=== PATIENT | female | born 1955 | race Caucasian/White ===

== ENCOUNTER 2018-02-21 21:42 | Inpatient (IN) ==
[2018-02-21 23:55] LABS: Baso # (Auto) 0.1 th/mm3 (0.0-0.2); Baso % (Auto) 0.7 % (0.0-2.0); Eos # (Auto) 0.3 th/mm3 (0.0-0.4); Eos % (Auto) 2.7 % (0.0-4.0); Hematocrit 43.1 % (35.0-46.0); Hemoglobin 14.8 gm/dL (11.6-15.3); Lymph # (Auto) 3.5 th/mm3 (1.0-4.8); Lymph % (Auto) 33.1 % (9.0-44.0); Mean Corpuscular HGB Conc 34.4 % (32.0-36.0); Mean Corpuscular Hemoglobin 32.1 pg (27.0-34.0); Mean Corpuscular Volume 93.4 fL (80.0-100.0); Mean Platelet Volume 9.5 fL (7.0-11.0); Mono # (Auto) 0.8 th/mm3 (0.0-0.9); Mono % (Auto) 7.4 % (0.0-8.0); Neut # (Auto) 5.9 th/mm3 (1.8-7.7); Neut % (Auto) 56.1 % (16.0-70.0); Platelet Count 164 th/mm3 (150-450); Red Blood Count 4.62 mil/mm3 (4.00-5.30); White Blood Count 10.4 th/mm3 (4.0-11.0)
[2018-02-22 00:09] LABS: Activated Partial Thrombo Time 30.3 sec (24.3-30.1); Albumin 3.4 g/dL (3.4-5.0); Anion Gap 7 meq/L (5-15); Aspartate Aminotransferase 16 U/L (15-37); Blood Urea Nitrogen 15 mg/dL (7-18); Calcium 9.3 mg/dL (8.5-10.1); Carbon Dioxide 24.1 meq/L (21.0-32.0); Chloride 108 meq/L (98-107); Glomerular Filtration Rate 65 mL/min (>89); Glucose,Random 121 mg/dL (74-106); Potassium 3.3 meq/L (3.5-5.1); Prothrombin Time 10.4 sec (9.8-11.6); Sodium 139 meq/L (136-145)
[2018-02-22 00:10] LABS: Alanine Aminotransferase 19 U/L (10-53)
[2018-02-22 00:13] LABS: Alkaline Phosphatase 86 U/L (45-117); Total Protein 7.4 g/dL (6.4-8.2)
[2018-02-22 00:21] LABS: Creatine Kinase 39 U/L (26-192)
--- NOTE | 2018-02-22 00:54 | CT ---
EXAM DATE: 02/22/2018 12:42 AM EDT AGE/SEX: 62 years / Female INDICATIONS: Evaluate for brain lesion. Abnormal scan done at [facility]. CLINICAL DATA: This is the patient's initial encounter. Patient reports that signs and symptoms have been present for 1 day and indicates a pain score of 0/10. MEDICAL/SURGICAL HISTORY: Hypertension. Hypercholesterolemia. None. RADIATION DOSE: 56.35 CTDI (mGy) COMPARISON: No prior exams available for comparison. [facility] 2018-02-21 TECHNIQUE: Axial images of the head were acquired without contrast and after intravenous administrat ion of 100 ml Omnipaque 350 (iohexol) nonionic water-soluble contrast as a single exam dose. Using automated exposure control and adjustment of the mA and/or kV according to patient size, radiation d ose was kept as low as reasonably achievable to obtain optimal diagnostic quality images. DICOM form at image data is available electronically for review and comparison. FINDINGS: Cerebrum: There is mild generalized atrophy and ventricles are normal given the degree of atrophy. M ild periventricular white matter change is present. There is a hyperdense round lesion in the periphe ral right frontal lobe in the mid convexity measuring 1.8 x 1.6 cm. Given the location it could be ei ther intra-axial or extra-axial blood intra-axial is favored. Following contrast administration there is possible enhancement. No other lesion is identified. There is no associated edema within the arabella cent right frontal lobe and no significant mass effect is present. No midline shift, or acute infarc tion. No extraaxial fluid collections are seen. Posterior Fossa: The cerebellum and brainstem demonstrate no acute abnormality. The 4th ventricle is midline. The cerebellopontine angle is within normal limits. Extracranial: The visualized sinuses are clear. Skull: The calvaria is intact. No skull fracture. CONCLUSION: 1. There is a 1.8 cm hyperdense abnormality in the right frontal lobe. Following contrast administra tion there is the suggestion of enhancement suggesting that it represents a solid mass and not hemorr verna. Based on the location this could be intra-axial or extra-axial but the appearance favors an int ra-axial lesion. Therefore, meningioma is unlikely. It is not causing any significant local mass effe ct or edema in the adjacent brain. This should undergo further characterization with brain MRI with a nd without intravenous contrast for additional characterization. This could be performed tomorrow [facility] [place] since it is not causing any mass effect or edema. 2. No other abnormality is identified. Electronically signed by: Mika Dey MD 02/22/2018 12:53 AM EDT
--- NOTE | 2018-02-22 02:20 | ED ---
HPI General Chief Complaint: Neuro Symptoms/Deficit Stated Complaint: transfer inn/medical Time Seen by Provider: 02/21/18 22:35 History of Present Illness HPI Narrative: Patient is a 62-year-old female presents the emergency department from an outside with a newly diagnosed brain mass. Patient reports that over the last few weeks she has had symptoms such as torticollis. Ptosis. And facial droop. Patient is asymptomatic at this time and does state that her symptoms come and go. She went to the other facility because she had facial droop this evening. They subsequently found a mass on CAT scan and transferred the patient here for neurosurgical evaluation. Dr. Li accepted the patient in transfer. Related Data Home Medications Medication Instructions Recorded Confirmed No Known Home Medications 02/21/18 02/21/18 Allergies Allergy/AdvReac Type Severity Reaction Status Date / Time No Known Allergies Allergy Unverified 02/21/18 22:13 Review of Systems ROS: all other systems reviewed are negative Constitutional Denies fever(s) Eyes Denies blurry vision Comments: ptosis left eye ENT Denies nose pain, Denies tinnitus and Denies sinus pressure [facility] Medical History Medical History Hyperlipidemia (Acute) Hypertension (Acute) Family History Family History Other Family history normal Social History Social History Substance History: No History of Abuse Smoking Status: Unknown if ever smoked How Often Do You Have a Drink Containing Alcohol: Never Recent Travel in [facility] within the Last 8 Weeks: No Recent Out of Country Travel within the Last 8 Weeks: No Immunization History Tetanus Immunization: Unsure Exam Narrative Exam Narrative: GENERAL: 62-year-old female in no distress SKIN: Focused skin assessment warm/dry. HEAD: Atraumatic. Normocephalic. EYES: Pupils equal and round. No scleral icterus. No injection or drainage. ENT: No nasal bleeding or discharge. Mucous membranes pink and moist. NECK: Trachea midline. Normal range of motion. No torticollis noted CARDIOVASCULAR: Regular rate and rhythm. No murmur appreciated. RESPIRATORY: No accessory muscle use. Clear to auscultation. Breath sounds equal bilaterally. GASTROINTESTINAL: Abdomen soft, non-tender, nondistended. Hepatic and splenic margins not palpable. MUSCULOSKELETAL: No obvious deformities. No clubbing. No cyanosis. No edema. NEUROLOGICAL: Awake and alert. No obvious cranial nerve deficits. There is no facial asymmetry. There are no cerebellar findings at this time. There are no motor or sensory deficits. Normal speech. PSYCHIATRIC: Appropriate mood and affect; insight and judgment normal. Course Initial Documented Vital Signs Temperature 98.0 F 02/21/18 22:05 Pulse Rate 65 02/21/18 22:05 Respiratory Rate 16 02/21/18 22:05 Blood Pressure 173/85 H 02/21/18 22:05 Pulse Oximetry 98 02/21/18 22:05 Last Documented Vital Signs Temperature 98.0 F 02/21/18 22:05 Pulse Rate 65 02/21/18 22:13 Respiratory Rate 16 02/21/18 22:13 Blood Pressure 173/85 H 02/21/18 22:13 Pulse Oximetry 98 02/21/18 22:13 Medical Decision Making MDM Narrative Medical decision making narrative: Patient was seen and evaluated in the emergency department. A repeat of her laboratory studies and radiographic studies were performed. CT demonstrates frontal lobe mass consistent with meningioma. Patient was subsequently admitted to [facility] at the request of Dr. Li. Dr. Isaacs was present in the ER and evaluated the patient prior to admission. Lab Data Result diagrams: 02/21/18 23:40 02/21/18 23:40 Lab Results 02/21/18 02/21/18 02/21/18 Range/Units 23:40 23:40 23:40 WBC 10.4 (4.0-11.0) th/mm3 RBC 4.62 (4.00-5.30) mil/mm3 Hgb 14.8 (11.6-15.3) gm/dL Hct 43.1 (35.0-46.0) % MCV 93.4 (80.0-100.0) fL MCH 32.1 (27.0-34.0) pg MCHC 34.4 (32.0-36.0) % RDW 14.0 (11.6-17.2) % Plt Count 164 (150-450) th/mm3 MPV 9.5 (7.0-11.0) fL Neut % (Auto) 56.1 (16.0-70.0) % Lymph % (Auto) 33.1 (9.0-44.0) % Mineral % (Auto) 7.4 (0.0-8.0) % Eos % (Auto) 2.7 (0.0-4.0) % Baso % (Auto) 0.7 (0.0-2.0) % Neut # (Auto) 5.9 (1.8-7.7) th/mm3 Lymph # (Auto) 3.5 (1.0-4.8) th/mm3 Mineral # (Auto) 0.8 (0.0-0.9) th/mm3 Eos # (Auto) 0.3 (0.0-0.4) th/mm3 Baso # (Auto) 0.1 (0.0-0.2) th/mm3 WBC Differential . Differential Comment Auto diff final PT 10.4 (9.8-11.6) sec INR 1.0 Ratio APTT 30.3 H (24.3-30.1) sec Sodium 139 (136-145) meq/L Potassium 3.3 L (3.5-5.1) meq/L Chloride 108 H (98-107) meq/L Carbon Dioxide 24.1 (21.0-32.0) meq/L Anion Gap 7 (5-15) meq/L BUN 15 (7-18) mg/dL Creatinine 0.88 (0.50-1.00) mg/dL Estimated GFR 65 L (>89) mL/min Random Glucose 121 H (74-106) mg/dL Calcium 9.3 (8.5-10.1) mg/dL Total Bilirubin 0.4 (0.2-1.0) mg/dL AST 16 (15-37) U/L ALT 19 (10-53) U/L Alkaline Phosphatase 86 (45-117) U/L Total Creatine Kinase 39 (26-192) U/L Total Protein 7.4 (6.4-8.2) g/dL Albumin 3.4 (3.4-5.0) g/dL Blood Type Blood Type Recheck Antibody Screen 02/21/18 Range/Units 23:40 WBC (4.0-11.0) th/mm3 RBC (4.00-5.30) mil/mm3 Hgb (11.6-15.3) gm/dL Hct (35.0-46.0) % MCV (80.0-100.0) fL MCH (27.0-34.0) pg MCHC (32.0-36.0) % RDW (11.6-17.2) % Plt Count (150-450) th/mm3 MPV (7.0-11.0) fL Neut % (Auto) (16.0-70.0) % Lymph % (Auto) (9.0-44.0) % Mineral % (Auto) (0.0-8.0) % Eos % (Auto) (0.0-4.0) % Baso % (Auto) (0.0-2.0) % Neut # (Auto) (1.8-7.7) th/mm3 Lymph # (Auto) (1.0-4.8) th/mm3 Mineral # (Auto) (0.0-0.9) th/mm3 Eos # (Auto) (0.0-0.4) th/mm3 Baso # (Auto) (0.0-0.2) th/mm3 WBC Differential Differential Comment PT (9.8-11.6) sec INR Ratio APTT (24.3-30.1) sec Sodium (136-145) meq/L Potassium (3.5-5.1) meq/L Chloride (98-107) meq/L Carbon Dioxide (21.0-32.0) meq/L Anion Gap (5-15) meq/L BUN (7-18) mg/dL Creatinine (0.50-1.00) mg/dL Estimated GFR (>89) mL/min Random Glucose (74-106) mg/dL Calcium (8.5-10.1) mg/dL Total Bilirubin (0.2-1.0) mg/dL AST (15-37) U/L ALT (10-53) U/L Alkaline Phosphatase (45-117) U/L Total Creatine Kinase (26-192) U/L Total Protein (6.4-8.2) g/dL Albumin (3.4-5.0) g/dL Blood Type A Positive Blood Type Recheck Required Antibody Screen Negative Imaging Data Radiologist's impression: Head CT 02/22/18 00:01 CONCLUSION: 1. There is a 1.8 cm hyperdense abnormality in the right frontal lobe. Following contrast administration there is the suggestion of enhancement suggesting that it represents a solid mass and not hemorrhage. Based on the location this could be intra-axial or extra-axial but the appearance favors an intra-axial lesion. Therefore, meningioma is unlikely. It is not causing any significant local mass effect or edema in the adjacent brain. This should undergo further characterization with brain MRI with and without intravenous contrast for additional characterization. This could be performed tomorrow morning since it is not causing any mass effect or edema. 2. No other abnormality is identified. Discharge Plan Discharge Disposition Patient Disposition: 30 Still Patient Discharge Condition Condition: Stable Physicians Team ED Provider: Shania Ravi Primary Care Provider: UNKNOWN, Attending Provider: Makenzie Isaacs Other Providers: Abad Li Status ED Status: Admitted Patient
[2018-02-22] MEDS ORDERED: Acetaminophen 325 MG Tablet PO PRN (03:10)
[2018-02-22] MEDS ORDERED: Bisacodyl 10 MG Supp RECTAL PRN (03:10)
[2018-02-22] MEDS ORDERED: Temazepam 15 MG Capsule PO PRN (03:10)
--- NOTE | 2018-02-22 03:20 | P.HP ---
History of Present Illness Service: [facility] Primary Care Physician: UNKNOWN History of Present Illness: 62-year-old female is a transfer from [facility] for an evaluation of a brain mass. The patient reports that approximately 2 weeks ago she complained of numbness. She also states that she has had 3 episodes of left-sided tongue and facial numbness with slurred speech. She was concerned that she had a stroke. She went to [facility] for further evaluation where a CT of the head showed a frontal lobe mass. [place] [facility] [place] there was no neurology/neurosurgery on-call at [place]. The patient states that she feels fine. Denies any headaches or blurry vision. No pain. Inpatient Certification: I certify that the inpatient services were ordered in accordance with Medicare regulations governing the order. This includes certification that hospital inpatient services are reasonable and necessary and in the case of services not specified as inpatient-only under 42 CFR 419.22(n), that they are appropriately provided as inpatient services in accordance to with the 2-midnight benchmark under 43 CFR 412.3(e) Estimated Total Length of Stay (Days): 3 Plans for Post Hospital Care: Not yet determined Review of Systems All other systems reviewed negative except as stated in HPI PMFSH - History History Provided By: Advertising Designer / EMT - Medical / Surgical Hx Neg / Unobtainable Surgical History: No Previous Surgery - Medical History Medical History: Medical History (Last Updated 02/21/18 @ 22:12 by Yanira Cao) Hyperlipidemia Hypertension - Family History Family History: Family History (Last Updated 02/22/18 @ 03:16 by Makenzie Isaacs MD) Other Family history normal - Tobacco History Smoking Status: Unknown if ever smoked - Alcohol History How Often Do You Have a Drink Containing Alcohol: Never - Substance Use History Substance History: No History of Abuse - Travel History Recent Travel in the [place] Within the Last 8 Weeks: No Recent Travel Out of the Country Within the Last 8 Weeks: No - Immunization History Tetanus Immunization: Unsure Medications and Allergies Allergies Allergy/AdvReac Type Severity Reaction Status Date / Time No Known Allergies Allergy Unverified 02/21/18 22:13 Home Medications Medication Instructions Recorded Confirmed Type No Known Home Medications 02/21/18 02/21/18 History Exam Vital signs: Vital Signs 02/21/18 22:05 02/21/18 22:13 Temperature 98.0 F Pulse Rate 65 65 Respiratory Rate 16 16 Blood Pressure 173/85 H 173/85 H Pulse Oximetry 98 98 Intake & Output 02/21/18 02/21/18 02/22/18 06:59 18:59 06:59 Weight 63.503 kg Narrative: Gen.: No acute distress Head: Normocephalic. Atraumatic. EENT: Pupils equal round and reactive to light. Nose without drainage. Airway intact. Throat without injection. Cardiovascular: Regular rate and rhythm. No murmurs, rubs or gallops. Respiratory: Lungs clear to auscultation bilaterally. No wheezes or rhonchi. Abdomen: Soft, nontender, nondistended. No peritoneal signs. Musculoskeletal: No gross deformities. No edema. Skin: No obvious rashes or erythema. Neuro: Sensory and motor intact. Cranial nerves II through XII intact. 5/5 strength throughout. No slurred speech. Psych: Appropriate mood and affect Results - Labs CBC & Chem 7: 02/21/18 23:40 02/21/18 23:40 Labs: Laboratory Results - last 24 hr 02/21/18 02/21/18 02/21/18 23:40 23:40 23:40 WBC 10.4 RBC 4.62 Hgb 14.8 Hct 43.1 MCV 93.4 MCH 32.1 MCHC 34.4 RDW 14.0 Plt Count 164 MPV 9.5 Neut % (Auto) 56.1 Lymph % (Auto) 33.1 [place] % (Auto) 7.4 Eos % (Auto) 2.7 Baso % (Auto) 0.7 Neut # (Auto) 5.9 Lymph # (Auto) 3.5 [place] # (Auto) 0.8 Eos # (Auto) 0.3 Baso # (Auto) 0.1 WBC Differential . Differential Comment Auto diff final PT 10.4 INR 1.0 APTT 30.3 H Sodium 139 Potassium 3.3 L Chloride 108 H Carbon Dioxide 24.1 Anion Gap 7 BUN 15 Creatinine 0.88 Estimated GFR 65 L Random Glucose 121 H Calcium 9.3 Total Bilirubin 0.4 AST 16 ALT 19 Alkaline Phosphatase 86 Total Creatine Kinase 39 Total Protein 7.4 Albumin 3.4 Blood Type Blood Type Recheck Antibody Screen 02/21/18 23:40 WBC RBC Hgb Hct MCV MCH MCHC RDW Plt Count MPV Neut % (Auto) Lymph % (Auto) [place] % (Auto) Eos % (Auto) Baso % (Auto) Neut # (Auto) Lymph # (Auto) [place] # (Auto) Eos # (Auto) Baso # (Auto) WBC Differential Differential Comment PT INR APTT Sodium Potassium Chloride Carbon Dioxide Anion Gap BUN Creatinine Estimated GFR Random Glucose Calcium Total Bilirubin AST ALT Alkaline Phosphatase Total Creatine Kinase Total Protein Albumin Blood Type A Positive Blood Type Recheck Required Antibody Screen Negative - Imaging Impressions Head CT 02/22/18 00:01 CONCLUSION: 1. There is a 1.8 cm hyperdense abnormality in the right frontal lobe. Following contrast administration there is the suggestion of enhancement suggesting that it represents a solid mass and not hemorrhage. Based on the location this could be intra-axial or extra-axial but the appearance favors an intra-axial lesion. Therefore, meningioma is unlikely. It is not causing any significant local mass effect or edema in the adjacent brain. This should undergo further characterization with brain MRI with and without intravenous contrast for additional characterization. This could be performed tomorrow morning since it is not causing any mass effect or edema. 2. No other abnormality is identified. Caprini VTE Risk Assessment Caprini VTE Risk Assessment: Moderate/High Risk (score >= 2) Caprini Risk Assessment Model: Point Value = 1 Point Value = 2 Point Value = 3 Point Value = 5 Age 41-60 Minor surgery BMI > 25 kg/m2 Swollen legs Varicose veins or History of unexplained or recurrent spontaneous Oral contraceptives or hormone replacement Sepsis (< 1 month) Serious lung disease, including pneumonia (< 1 month) Abnormal pulmonary function Acute myocardial infarction Congestive heart failure (< 1 month) History of inflammatory bowel disease Medical patient at bed rest Age 61-74 Arthroscopic surgery Major open surgery (> 45 min) Laparoscopic surgery (> 45 min) Malignancy Confined to bed (> 72 hours) Immobilizing plaster cast Central venous access Age >= 75 History of VTE Family history of VTE Factor V Leiden Prothrombin [id number] Lupus anticoagulant Anticardiolipin antibodies Elevated serum homocysteine Heparin-induced thrombocytopenia Other congenital or acquired thrombophilia Stroke (< 1 month) Elective arthroplasty Hip, pelvis, or leg fracture Acute spinal cord injury (< 1 month) Prophylaxis Regimen: Total Risk Factor Score Risk Level Prophylaxis Regimen 0-1 Low Early ambulation 2 Moderate Order ONE of the following: *Sequential Compression Device (SCD) *Heparin 5000 units SQ BID 3-4 Higher Order ONE of the following medications: *Heparin 5000 units SQ TID *Enoxaparin/Lovenox 40 mg SQ daily (WT < 150 kg, CrCl > 30 mL/min) *Enoxaparin/Lovenox 30 mg SQ daily (WT < 150 kg, CrCl > 10-29 mL/min) *Enoxaparin/Lovenox 30 mg SQ BID (WT < 150 kg, CrCl > 30 mL/min) AND/OR *Sequential Compression Device (SCD) 5 or more Highest Order ONE of the following medications: *Heparin 5000 units SQ TID (Preferred with Epidurals) *Enoxaparin/Lovenox 40 mg SQ daily (WT < 150 kg, CrCl > 30 mL/min) *Enoxaparin/Lovenox 30 mg SQ daily (WT < 150 kg, CrCl > 10-29 mL/min) *Enoxaparin/Lovenox 30 mg SQ BID (WT < 150 kg, CrCl > 30 mL/min) AND *Sequential Compression Device (SCD) Assessment and Plan - Plan Assessment/plan: 1. Numbness/frontal lobe mass Head CT significant for 1.8 cm hyperdense abnormality in the right frontal lobe MRI pending Decadron Neurosurgery consulted, appreciate recommendations 2. Hypertension/hyperlipidemia Continue home medications once medications reconciled 3. Hypokalemia Status post p.o. repletion Monitor BMP FEN N.p.o. NS at 75 cc/hour Holding pharmacologic anticoagulation at this time for possible procedure Electrolytes: As above
[2018-02-22] MEDS: Sod Chloride 0.9% Inj 1,000 ML IV.CONT SCH ×3 (05:10→16:49)
[2018-02-22] MEDS ORDERED: Gadobutrol PF 7.5 MMOL/7.5 ML Vial (for RAD) IV.SIG ONE (09:24)
--- NOTE | 2018-02-22 09:50 | MR ---
EXAM DATE: 02/22/2018 9:33 AM EDT AGE/SEX: 62 years / Female INDICATIONS: Mass. CLINICAL DATA: This is the patient's initial encounter. Patient reports that signs and symptoms have been present for 1 day and indicates a pain score of 0/10. MEDICAL/SURGICAL HISTORY: Hypertension. Tubal ligation. COMPARISON: [facility] [place], [place] HEAD W & W/O CONTRAST, 02/22/2018. . TECHNIQUE: Multiplanar, multisequence examination of the brain was performed without and with 6 ml Ga davist (gadobutrol) contrast as a single exam dose. FINDINGS: Cerebrum: A peripherally enhancing mass is seen within the right parietal lobe at the haines-white ozzy er junction measuring 1.8 x 1.6 x 1.7 cm. Vasogenic edema is not appreciated. No other masses are see n. The ventricles are normal for age. No evidence of midline shift, hemorrhage or acute infarction. No extraaxial fluid collections are seen. The pituitary gland and suprasellar cistern are normal in configuration. White Matter: No significant signal abnormalities are seen in the white matter. Posterior Fossa: The cerebellum and brainstem are intact. The 4th ventricle is midline. The cerebel lopontine angle is unremarkable. The cerebellar tonsils are normal in position. Diffusion Imaging: No focal areas of restricted diffusion are seen. No evidence of acute infarction . Extracranial: The visualized portions of the orbits and paranasal sinuses are unremarkable. Post Contrast: Enhancing mass right parietal lobe as described above. CONCLUSION: 1. Enhancing mass right parietal lobe concerning for neoplasm and possible metastatic disease. 2. The remainder of the brain is otherwise unremarkable. Electronically signed by: Julio Serrato MD 02/22/2018 9:49 AM EDT
[2018-02-22] MEDS: Senna/Docusate Sodium 8.6/50 MG Tablet PO SCH ×2 (10:23→21:16)
--- NOTE | 2018-02-22 17:35 | P.CONNS ---
History of Present Illness Primary Care Provider: UNKNOWN Chief Complaint: Transient left facial numbness/weakness History of Present Illness: Ms. Keller is a 65 y/o female who has had several instances of transient left facial weakness and numbness over the past several weeks. She had previously sought medical attention and been told that the neurologic phenomena likely represented a TIA. She again had another episode and presented to the ED where CT head demonstrated cerebral edema in the right frontal lobe with imaging characteristics concerning for a mass lesion. She was transferred to [place] where she underwent a MRI of the brain that demonstrated a 1.8 x 1.6 cm heterogenously enhancing lesion most consistent with a solitary brain metastasis. She has a 40 year smoking history, denies history of cancer otherwise. Review of Systems All other systems reviewed negative except as stated in HPI [facility] - History History Provided By: Patient - Medical History Medical History: Medical History (Last Updated 02/21/18 @ 22:12 by Yanira Cao) Hyperlipidemia Hypertension - Family History Family History: Family History (Last Updated 02/22/18 @ 03:16 by Makenzie Isaacs MD) Other Family history normal - Tobacco History Second Hand Smoke Exposure: Yes Tobacco Use In Past 30 Days: Yes Smoking Status: Heavy tobacco smoker Tobacco Type: Cigarettes - Alcohol History How Often Do You Have a Drink Containing Alcohol: 2 to 3 times a week - Substance Use History Substance History: No History of Abuse - Travel History Recent Travel in the [place] Within the Last 8 Weeks: No Recent Travel Out of the Country Within the Last 8 Weeks: No - Immunization History Tetanus Immunization: Unsure Medications and Allergies Active Medications: Active Medications Acetaminophen (Tylenol) 650 mg PO Q4H PRN PRN Reason: Temp > 100.4 Al Hydroxide/Mg Hydroxide (Milk Of Magnesia Liq) 30 ml PO Q12H PRN PRN Reason: Mild Constipation Bisacodyl (Dulcolax Supp) 10 mg RECTAL DAILY PRN PRN Reason: SEVERE CONSITIPATION Dexamethasone Sodium Phosphate (Decadron Inj) 4 mg IV.PUSH Q8HR [facility] Last Admin: 02/22/18 13:30 Dose: 4 mg Sodium Chloride (Ns Inj) 1,000 mls @ 75 mls/hr IV.CONT .[id number] [facility] Last Admin: 02/22/18 16:49 Dose: 75 mls/hr Lactulose (Lactulose Liq) 30 ml PO DAILY PRN PRN Reason: SEVERE CONSITIPATION Ondansetron HCl (Zofran Inj) 4 mg IV.PUSH Q6H PRN PRN Reason: NAUSEA OR VOMITING Senna/Docusate Sodium (Mallory-Colace) 1 tab PO BID [facility] Last Admin: 02/22/18 10:23 Dose: 1 tab Sennosides (Senokot) 17.2 mg PO Q12H PRN PRN Reason: Moderate Constipation Sodium Chloride (Ns Flush) 2 ml IV.FLUSH BID [facility] Last Admin: 02/22/18 10:23 Dose: 2 ml Sodium Chloride (Ns Flush) 2 ml IV.FLUSH PRN PRN PRN Reason: FLUSH AFTER USING IV ACCESS Temazepam (Restoril) 15 mg PO HS PRN PRN Reason: INSOMNIA Allergies Allergy/AdvReac Type Severity Reaction Status Date / Time No Known Allergies Allergy Unverified 02/21/18 22:13 Home Medications Medication Instructions Recorded Confirmed Type No Known Home Medications 02/21/18 02/21/18 History Exam Vital signs: Vital Signs 02/21/18 22:05 02/21/18 22:13 02/22/18 04:49 Temperature 98.0 F Pulse Rate 65 65 89 Respiratory Rate 16 16 16 Blood Pressure 173/85 H 173/85 H 122/77 Pulse Oximetry 98 98 98 02/22/18 05:22 02/22/18 08:00 02/22/18 12:00 Temperature 98.2 F 98.6 F 98.2 F Pulse Rate 73 73 98 H Respiratory Rate 16 16 16 Blood Pressure 154/72 H 147/71 H 174/99 H Pulse Oximetry 96 99 95 02/22/18 13:01 02/22/18 16:00 Temperature 98.0 F Pulse Rate 106 H Respiratory Rate 14 Blood Pressure 142/80 H 138/81 Pulse Oximetry 96 Intake & Output 02/21/18 02/22/18 02/22/18 18:59 06:59 18:59 Intake Total 0 / 0 1000 / 1000 Balance 0 / 0 1000 / 1000 Weight 63.503 kg 55.452 kg Intake: IV 1000 / 1000 NS Inj 1,000 ML @ 75 mls/hr IV. 1000 / 1000 CONT .[id number] [facility] Rx#:[id number] Oral 0 / 0 Other: # Voids 1 Date of Last Bowel Movement 02/22/12 02/21/18 - Constitutional no acute distress - Routine HEENT Exam Head: Present: normocephalic Eye: Present: PERRL ENT: Present: mucous membranes moist - Routine Neck Exam Present: supple - Routine Chest/Breast/Axilla Exam Chest wall: Absent: tenderness - Routine Respiratory Exam Absent: respiratory distress - Routine Cardiovascular Exam Present: RRR - Routine Abdominal Exam Present: soft - Routine Extremities Exam Absent: cyanosis - Routine Skin Exam Present: intact - Routine Neurological Exam Present: alert, oriented X3, CN II-XII intact. Absent: motor deficit, pronator drift Results - Laboratory Findings CBC and BMP: 02/21/18 23:40 02/21/18 23:40 Abnormal lab findings: Abnormal Labs 02/21/18 02/21/18 23:40 23:40 APTT 30.3 H Potassium 3.3 L Chloride 108 H Estimated GFR 65 L Random Glucose 121 H - Diagnostic Findings Additional findings: MRI brain: 1.8 x 1.6 cm heterogenously enhancing lesion most consistent with a solitary brain metastasis. Assessment and Plan - Assessment (1) Brain metastasis Code(s): C79.31 - Secondary malignant neoplasm of brain Status: Acute - Plan Ms. Keller is a 62 y/o female presenting with a solitary brain lesion consistent with metastasis. No known primary as of yet, but she does have a significant smoking history. Plan: She, her and I discussed her treatment options at length. She has two primary options for treatment of the solitary brain lesion: 1. surgical resection and 2. stereotactic radiosurgery. Given the lesion's small size, I would recommend stereotactic radiosurgery should a primary lesion be identified and biopsied. If there is no primary lesion identified, then could consider craniotomy for tumor resection. 1. CT chest/abdomen/pelvis to evaluate for primary lesion and subsequent biopsy. 2. If no lesion evident on CT chest/abdomen/pelvis, would recommend craniotomy for tumor resection on 02/24/18. 3. Keppra 500 mg PO BID, Dexamethasone 4 mg q6h
[2018-02-23 05:43] LABS: Baso % (Auto) 0.1 % (0.0-2.0); Hematocrit 40.9 % (35.0-46.0); Hemoglobin 13.9 gm/dL (11.6-15.3); Lymph # (Auto) 1.4 th/mm3 (1.0-4.8); Lymph % (Auto) 11.5 % (9.0-44.0); Mean Corpuscular Hemoglobin 32.3 pg (27.0-34.0); Mean Corpuscular Volume 95.3 fL (80.0-100.0); Mono # (Auto) 0.3 th/mm3 (0.0-0.9); Mono % (Auto) 2.4 % (0.0-8.0); Neut # (Auto) 10.7 th/mm3 (1.8-7.7); Platelet Count 172 th/mm3 (150-450); Red Blood Count 4.29 mil/mm3 (4.00-5.30); Red Cell Distribution Width 14.1 % (11.6-17.2); White Blood Count 12.5 th/mm3 (4.0-11.0)
[2018-02-23] MEDS: Sod Chloride 0.9% Inj 1,000 ML IV.CONT SCH ×2 (06:14→22:03)
[2018-02-23 06:18] LABS: Calcium 9.2 mg/dL (8.5-10.1); Carbon Dioxide 23.9 meq/L (21.0-32.0)
[2018-02-23] MEDS: Senna/Docusate Sodium 8.6/50 MG Tablet PO SCH ×2 (09:12→22:02)
--- NOTE | 2018-02-23 11:15 | P.PN ---
Subjective Interval history: Follow-up for brain mass. Patient reports feeling well today. She denies any headache, visual changes, unilateral numbness/weakness, chest pain, shortness of breath, or abdominal complaints. Going for CT of chest/abdomen/pelvis this morning. Physical Exam Vital signs: Vital Signs 02/22/18 12:00 02/22/18 13:01 02/22/18 16:00 Temperature 98.2 F 98.0 F Pulse Rate 98 H 106 H Respiratory Rate 16 14 Blood Pressure 174/99 H 142/80 H 138/81 Pulse Oximetry 95 96 02/22/18 20:00 02/23/18 00:00 02/23/18 04:00 Temperature 98.7 F 98.1 F Pulse Rate 97 H 78 62 Respiratory Rate 18 18 16 Blood Pressure 136/74 128/62 132/71 Pulse Oximetry 100 02/23/18 07:33 Temperature 97.7 F Pulse Rate 72 Respiratory Rate 16 Blood Pressure 141/75 H Pulse Oximetry 97 Intake & Output 02/22/18 02/23/18 02/23/18 18:59 06:59 18:59 Intake Total 1400 / 1400 1000 / 1000 Balance 1400 / 1400 1000 / 1000 Weight 55.452 kg Intake: IV 1000 / 1000 1000 / 1000 NS Inj 1,000 ML @ 75 mls/hr IV. 1000 / 1000 1000 / 1000 CONT .[id number] [facility] Rx#:[id number] Oral 400 / 400 Other: Date of Last Bowel Movement 02/21/18 02/21/18 02/22/18 Narrative: GENERAL: Well-nourished, well-developed pleasant middle-age female patient in [facility]. SKIN: Warm and dry. No rash. HEENT: Normocephalic. Atraumatic. Pupils equal and round. Mucous membranes pink and moist. NECK: Supple. Trachea midline. No palpable lymphadenopathy. CARDIOVASCULAR: Regular rate and rhythm. No murmur appreciated. RESPIRATORY: No accessory muscle use. Clear to auscultation. Breath sounds equal bilaterally. GASTROINTESTINAL: Abdomen soft, non-tender, nondistended. Normoactive bowel sounds x4. MUSCULOSKELETAL: No obvious deformities. Extremities without clubbing, cyanosis , or edema. NEUROLOGICAL: Awake and alert. No obvious cranial nerve deficits. Motor grossly within normal limits. Moving all extremities spontaneously. Normal speech. PSYCHIATRIC: Appropriate mood and affect; insight and judgment normal. Results - Labs CBC & Chem 7: 02/23/18 03:30 02/23/18 03:30 Laboratory Results - last 24 hr 02/23/18 02/23/18 03:30 03:30 WBC 12.5 H RBC 4.29 Hgb 13.9 Hct 40.9 MCV 95.3 MCH 32.3 MCHC 34.0 RDW 14.1 Plt Count 172 MPV 10.0 Neut % (Auto) 86.0 H Lymph % (Auto) 11.5 Sierra % (Auto) 2.4 Eos % (Auto) 0.0 Baso % (Auto) 0.1 Neut # (Auto) 10.7 H Lymph # (Auto) 1.4 Sierra # (Auto) 0.3 Eos # (Auto) 0.0 Baso # (Auto) 0.0 WBC Differential . Differential Comment Auto diff final Sodium 141 Potassium 4.0 Chloride 109 H Carbon Dioxide 23.9 Anion Gap 8 BUN 17 Creatinine 0.74 Estimated GFR 80 L Random Glucose 138 H Calcium 9.2 - Imaging Head MRI 02/22/18 00:00 CONCLUSION: 1. Enhancing mass right parietal lobe concerning for neoplasm and possible metastatic disease. 2. The remainder of the brain is otherwise unremarkable. Head CT 02/22/18 00:01 CONCLUSION: 1. There is a 1.8 cm hyperdense abnormality in the right frontal lobe. Following contrast administration there is the suggestion of enhancement suggesting that it represents a solid mass and not hemorrhage. Based on the location this could be intra-axial or extra-axial but the appearance favors an intra-axial lesion. Therefore, meningioma is unlikely. It is not causing any significant local mass effect or edema in the adjacent brain. This should undergo further characterization with brain MRI with and without intravenous contrast for additional characterization. This could be performed tomorrow morning since it is not causing any mass effect or edema. 2. No other abnormality is identified. Abdomen/Pelvis CT 02/23/18 00:00 CONCLUSION: 1. Benign-appearing 8.5 mm cyst in the medial aspect of the right hepatic lobe. 2. Otherwise, no findings of a mass lesion or metastatic disease. 3. 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 Chest CT 02/23/18 00:00 CONCLUSION: 1. Early biapical emphysematous changes. 2. Isolated 2 cm lymph node in the left hilar region. Etiology is uncertain. Outpatient patent PET imaging could be performed to evaluate metabolic activity in this region if clinically warranted. 3. Mild atherosclerotic calcification of the coronary arteries Assessment and Plan - Plan 62-year-old female with history of hypertension, hyperlipidemia, presents from [facility] for evaluation of a brain mass. She presented to [facility] with 3 episodes of left-sided tongue/facial numbness, slurred speech, concerned for having a stroke, found to have a frontal lobe mass on CT, sent to [facility] for neurosurgery evaluation. Brain mass: Acute. + Facial numbness/slurred speech. Symptoms now improved. -Head CT reviewed, shows 1.8 cm hyperdense abnormality in the right frontal lobe -Brain MRI reviewed, shows enhancing mass right parietal lobe concerning for neoplasm and possible metastatic disease -Consulted neurosurgery, appreciate recommendations -Started on Decadron 4mg IV q6h and Keppra 500mg po bid -Checking CT of chest/abdomen/pelvis to look for primary lesion Hypertension/Hyperlipidemia: chronic. BP fairly well-controlled. -restart home meds once med rec is updated DVT prophylaxis: Teds/SCDs; avoid chemical prophylaxis with possible upcoming biopsy/procedure
--- NOTE | 2018-02-23 11:15 | CT ---
EXAM DATE: 02/23/2018 11:04 AM EDT AGE/SEX: 62 years / Female INDICATIONS: Brain tumor, evaluate for metastatic disease. CLINICAL DATA: This is the patient's initial encounter. Patient reports that signs and symptoms have been present for 1 day and indicates a pain score of 0/10. MEDICAL/SURGICAL HISTORY: Hypertension. None. RADIATION DOSE: 5.1 CTDI (mGy) COMPARISON: No prior exams available for comparison. TECHNIQUE: Multiple contiguous axial images were obtained through the chest during bolus infusion of 95 ml Omnipaque 350 (iohexol) nonionic water-soluble contrast as a cumulative dose for multiple exa ms. Images were obtained in suspended respiration using multiple row detector helical technique. U sing automated exposure control and adjustment of the mA and/or kV according to patient size, radiati on dose was kept as low as reasonably achievable to obtain optimal diagnostic quality images. DICOM format image data is available electronically for review and comparison. FINDINGS: Lungs: A few subpleural blebs in the apices are characteristic of mild emphysematous changes. Lungs are otherwise clear. Mediastinum: Mild athetotic calcification of the coronary arteries. There appears to be an isolated, 2 cm left perihilar lymph node. Pleurae: No evidence of focal thickening or pleural effusion. Axillae: Unremarkable. Bony Structures: Unremarkable. Miscellaneous: The examination was extended to include the upper abdomen, and both adrenal glands ar e normal in size and configuration. 8.5 mm benign-appearing cyst in the medial right hepatic lobe Post Contrast: No abnormal areas of enhancement seen. CONCLUSION: 1. Early biapical emphysematous changes. 2. Isolated 2 cm lymph node in the left hilar region. Etiology is uncertain. Outpatient patent PET i maging could be performed to evaluate metabolic activity in this region if clinically warranted. 3. Mild atherosclerotic calcification of the coronary arteries Electronically signed by: Sajan Cr MD 02/23/2018 11:14 AM EDT
--- NOTE | 2018-02-23 11:20 | CT ---
EXAM DATE: 02/23/2018 11:04 AM EDT AGE/SEX: 62 years / Female INDICATIONS: Brain tumor, evaluate for metastatic disease. CLINICAL DATA: This is the patient's initial encounter. Patient reports that signs and symptoms have been present for 1 day and indicates a pain score of 0/10. MEDICAL/SURGICAL HISTORY: Hypertension. None. ORAL CONTRAST: No oral contrast ingested. RADIATION DOSE: 5.1 CTDI (mGy) COMPARISON: No prior exams available for comparison. TECHNIQUE: Multiple contiguous axial images were obtained through the abdomen and pelvis following b olus infusion of 95 ml Omnipaque 350 (iohexol) nonionic water-soluble contrast as a cumulative dose for multiple exams. No oral contrast ingested. Using automated exposure control and adjustment of t he mA and/or kV according to patient size, radiation dose was kept as low as reasonably achievable to obtain optimal diagnostic quality images. DICOM format image data is available electronically for r eview and comparison. FINDINGS: Lower Lungs: The visualized lower lungs are clear. Liver: Isolated, 8.5 mm cyst medially in the right hepatic lobe. Otherwise, homogeneous density. Spleen: Homogeneous density without enlargement. Pancreas: Unremarkable without mass or calcification. Kidneys: Normal in size and shape. No evidence of mass or hydronephrosis. Adrenal Glands: Unremarkable. Aorta: Dense athetotic plaquing of the abdominal aorta but the vessel is normal in caliber througho ut its length. The left common iliac occludes at its origin with a 50% stenosis in the ostium of the right common iliac artery. Calcification of the right iliac system but the vessel is otherwise patent . Collateral reconstitution of the left external iliac in the region of the hypogastric. Bowel/Mesentery: The bowel loops are grossly unremarkable. The cecum and sigmoid colon have a normal configuration. Abdominal Wall: Intact. Retroperitoneum: No evidence of adenopathy in the retrocrural, para-aortic, or deep pelvic regions. Bladder: Contours are smooth. Reproductive Organs: No abnormal masses or calcifications seen. Inguinal: The inguinal region is unremarkable without evidence of adenopathy. Bony Structures: Unremarkable. Post Contrast: No abnormal areas of enhancement seen. CONCLUSION: 1. Benign-appearing 8.5 mm cyst in the medial aspect of the right hepatic lobe. 2. Otherwise, no findings of a mass lesion or metastatic disease. 3. 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 Electronically signed by: Sajan Cr MD 02/23/2018 11:19 AM EDT
[2018-02-23] MEDS ORDERED: Chlorhexidine Gluconate 2% 1 Pack (2 Cloths) TOPICAL SCH (17:45)
[2018-02-23] MEDS ORDERED: Metoprolol Tartrate 25 MG Tablet PO SCH (17:45)
--- NOTE | 2018-02-23 17:46 | P.PNNS ---
Subjective Interval history: No events CT Chest/Abd/Pelvis negative except for small hilar nodule planned for 3 month f /u PET per Onc-- they agree w/ brain tissue diagnosis tmrw Physical Exam Vital signs: Vital Signs 02/22/18 20:00 02/23/18 00:00 02/23/18 04:00 Temperature 98.7 F 98.1 F Pulse Rate 97 H 78 62 Respiratory Rate 18 18 16 Blood Pressure 136/74 128/62 132/71 Pulse Oximetry 100 02/23/18 07:33 02/23/18 15:28 Temperature 97.7 F 97.7 F Pulse Rate 72 75 Respiratory Rate 16 16 Blood Pressure 141/75 H 147/70 H Pulse Oximetry 97 96 Intake & Output 02/22/18 02/23/18 02/23/18 18:59 06:59 18:59 Intake Total 1400 / 1400 1000 / 1000 Balance 1400 / 1400 1000 / 1000 Weight 55.452 kg Intake: IV 1000 / 1000 1000 / 1000 NS Inj 1,000 ML @ 75 mls/hr IV. 1000 / 1000 1000 / 1000 CONT .[id number] [facility] Rx#:[id number] Oral 400 / 400 Other: Date of Last Bowel Movement 02/21/18 02/21/18 02/22/18 Narrative: A&O x 3 CN II-XII intact Motor 5/5 UE/ LE Reflexes symmetric physiologic Gait wnl Assessment and Plan - Assessment (1) Brain metastasis Code(s): C79.31 - Secondary malignant neoplasm of brain Status: Acute - Plan Ms. Keller is a 62 y/o female presenting with a solitary brain lesion consistent with metastasis. No known primary as of yet, but she does have a significant smoking history. Plan: She, her and I discussed her treatment options at length. She has two primary options for treatment of the solitary brain lesion: 1. surgical resection and 2. stereotactic radiosurgery. Given the lesion's small size, I would recommend stereotactic radiosurgery should a primary lesion be identified and biopsied. If there is no primary lesion identified, then could consider craniotomy for tumor resection. 1. Given negative CT Chest/Abd/Pelvis, plan for craniotomy for tumor resection on 02/24/18. npo after midnight, consented. 3. Keppra 500 mg PO BID, Dexamethasone 4 mg q6h
[2018-02-23] MEDS ORDERED: Sodium Chlor 0.9% Inj 500 ML IV.SIG SCH (18:00)
[2018-02-23] MEDS: levETIRAcetam 500 MG Tablet PO SCH (22:02)
--- NOTE | 2018-02-24 06:09 | ECG ---
Date Performed: 02/23/2018 Time Performed: 18:09:45 PTAGE: 62 years EKG: Sinus rhythm SEPTAL MYOCARDIAL INFARCTION ABNORMAL ECG NO PREVIOUS TRACING DOCTOR: Andres Delarosa Interpretating Date/Time 02/24/2018 06:08:03
--- NOTE | 2018-02-24 08:41 | MB ---
cc: Sera Mcgraw MD DATE: 02/23/2018 CHIEF COMPLAINT: 1. Brain mass. 2. Right hilar adenopathy. HISTORY OF PRESENT ILLNESS: Patient is a 62-year-old lady with a history of hypertension and hyperlipidemia, who had a 2-week history of left-sided tongue and facial numbness associated with slurred speech. She presented to [facility] and underwent CT scan of the head, which showed a brain mass, and she was transferred to [facility] for further evaluation and management. The brain MRI showed enhancing mass of the right parietal lobe. She also underwent CT scan of the abdomen and pelvis, which showed a benign-appearing 8.5 cm cyst in the medial aspect of the right hepatic lobe and some atherosclerotic disease with occlusion of left common iliac artery and stenosis of the right common iliac artery. CT scan of the chest showed an indeterminate 2 cm right hilar lesion. She was seen by the neurosurgery team, and they plan to take her to the operating room on 02/24/2018. PAST MEDICAL HISTORY: Hypertension, hyperlipidemia, diabetes. ROS as above in HPI. PAST SURGICAL HISTORY: None. SOCIAL HISTORY: The patient reports that she drinks 2 drinks a week and smokes 1 pack per day. She has a good support system with her . FAMILY HISTORY: No family history of malignancy. HOSPITAL MEDICATIONS: 1. Restoril. 2. Senna/docusate. 3. Metoprolol. 4. Keppra. 5. Lactulose. PHYSICAL EXAMINATION: GENERAL: Well-developed, well-nourished lady, in no distress. HEENT: Head normocephalic, atraumatic. Eyes: PERRLA. EOMI. Oropharynx clear. NECK: Supple. No palpable lymphadenopathy. CARDIOVASCULAR: Regular rate and rhythm with no murmurs. RESPIRATORY: Clear to auscultation bilaterally. ABDOMEN: Soft, nontender, nondistended. Bowel sounds present. EXTREMITIES: No edema. NEUROLOGIC: Grossly nonfocal. LABORATORY STUDIES: White blood cell count 10.4, hemoglobin 14.8, MCV 94.3, platelet count is 164,000. Chemistry studies with a creatinine of 0.8 and normal liver function tests. ASSESSMENT AND PLAN: Brain lesion. Neurosurgery team will plan to take her to the operating room on Friday. Inpatient oncology team will continue to follow pathology results. Patient will need outpatient PET scan for further evaluation of 2 cm right hilar mass. Sera Mcgraw MD BRENNAN/michelle , 07:42 AM , 07:49 AM RUDI
--- NOTE | 2018-02-24 09:27 | P.PNNS ---
Subjective Interval history: No acute events overnight. Physical Exam Vital signs: Vital Signs 02/23/18 15:28 02/23/18 19:54 02/24/18 00:00 Temperature 97.7 F 97.9 F 97.9 F Pulse Rate 75 92 H 66 Respiratory Rate 16 18 17 Blood Pressure 147/70 H 158/78 H 177/75 H Pulse Oximetry 96 95 96 02/24/18 04:30 02/24/18 07:36 Temperature 97.7 F Pulse Rate 62 Respiratory Rate 16 Blood Pressure 155/84 H 154/84 H Pulse Oximetry 96 Intake & Output 02/23/18 02/24/18 02/24/18 18:59 06:59 18:59 Intake Total 1000 / 1000 Balance 1000 / 1000 Intake: IV 1000 / 1000 NS Inj 1,000 ML @ 75 mls/hr IV. 1000 / 1000 CONT .[id number] [facility] Rx#:[id number] Other: Date of Last Bowel Movement 02/22/18 02/22/18 Narrative: Opens eyes to voice PERRL EOMI Alert and oriented to self, place, year Follows commands x4 No pronator drift Assessment and Plan - Assessment (1) Brain metastasis Code(s): C79.31 - Secondary malignant neoplasm of brain Status: Acute - Plan Ms. Keller is a 62 y/o female presenting with a solitary brain lesion consistent with metastasis. No known primary, but she does have a significant smoking history. CT chest/abdomen/pelvis unremarkable except for 2 cm left hilar lymph node. Plan: She, her and I discussed her treatment options at length. Given that her CT chest/abdomen/pelvis is essentially unremarkable, we will proceed with surgical resection of her brain lesion. We discussed the risks of surgery including, but not limited to: numbness, weakness, paralysis, seizures, non- diagnostic tissue, subtotal resection, infection, bleeding, need for further surgery. We discussed the benefits of surgery including removal of the mass lesion and associated mass effect and diagnosis of the tissue. Highest on the differential is a neoplasm of glial origin (e.g. glioblastoma multiforme) or metastatic lesion (despite CT C/A/P being negative). S 1. Proceed today with right craniotomy for tumor resection. 2. Continue Keppra 500 mg PO BID, dexamethasone 4 mg q6h 3. Remain NPO
--- NOTE | 2018-02-24 09:57 | P.PNIM ---
Subjective Interval history: 62-year-old female is a transfer from [facility] for an evaluation of a brain mass. The patient reports that approximately 2 weeks ago she complained of numbness. She also states that she has had 3 episodes of left-sided tongue and facial numbness with slurred speech. She was concerned that she had a stroke. She went to [facility] for further evaluation where a CT of the head showed a frontal lobe mass. She was transferred to [facility] for further evaluation as there was no neurology/neurosurgery on-call at [place]. The patient states that she feels fine. Denies any headaches or blurry vision. No pain. 02-23 Follow-up for brain mass. Patient reports feeling well today. She denies any headache, visual changes, unilateral numbness/weakness, chest pain, shortness of breath, or abdominal complaints. Going for CT of chest/abdomen/ pelvis this morning. 02-24 TO GO FOR BIOPSY TODAY WITH NEUROSURGERY SWITCH KEPPRA TO LIQUID DW RN AND PT AND CASE MANAGEMENT Physical Exam Vital signs: Vital Signs 02/23/18 15:28 02/23/18 19:54 02/24/18 00:00 Temperature 97.7 F 97.9 F 97.9 F Pulse Rate 75 92 H 66 Respiratory Rate 16 18 17 Blood Pressure 147/70 H 158/78 H 177/75 H Pulse Oximetry 96 95 96 02/24/18 04:30 02/24/18 07:36 Temperature 97.7 F Pulse Rate 62 Respiratory Rate 16 Blood Pressure 155/84 H 154/84 H Pulse Oximetry 96 Intake & Output 02/23/18 02/24/18 02/24/18 18:59 06:59 18:59 Intake Total 1000 / 1000 Balance 1000 / 1000 Intake: IV 1000 / 1000 NS Inj 1,000 ML @ 75 mls/hr IV. 1000 / 1000 CONT .[id number] [facility] Rx#:[id number] Other: Date of Last Bowel Movement 02/22/18 02/22/18 Narrative: GENERAL: Well-nourished, well-developed pleasant middle-age female patient in [facility]. SKIN: Warm and dry. No rash. HEENT: Normocephalic. Atraumatic. Pupils equal and round. Mucous membranes pink and moist. NECK: Supple. Trachea midline. No palpable lymphadenopathy. CARDIOVASCULAR: Regular rate and rhythm. No murmur appreciated. RESPIRATORY: No accessory muscle use. Clear to auscultation. Breath sounds equal bilaterally. GASTROINTESTINAL: Abdomen soft, non-tender, nondistended. Normoactive bowel sounds x4. MUSCULOSKELETAL: No obvious deformities. Extremities without clubbing, cyanosis , or edema. NEUROLOGICAL: Awake and alert. No obvious cranial nerve deficits. Motor grossly within normal limits. Moving all extremities spontaneously. Normal speech. PSYCHIATRIC: Appropriate mood and affect; insight and judgment normal. Results - Labs CBC & Chem 7: 02/23/18 03:30 02/23/18 03:30 - Imaging Impressions Abdomen/Pelvis CT 02/23/18 00:00 CONCLUSION: 1. Benign-appearing 8.5 mm cyst in the medial aspect of the right hepatic lobe. 2. Otherwise, no findings of a mass lesion or metastatic disease. 3. 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 Chest CT 02/23/18 00:00 CONCLUSION: 1. Early biapical emphysematous changes. 2. Isolated 2 cm lymph node in the left hilar region. Etiology is uncertain. Outpatient patent PET imaging could be performed to evaluate metabolic activity in this region if clinically warranted. 3. Mild atherosclerotic calcification of the coronary arteries Assessment and Plan - Plan 62-year-old female with history of hypertension, hyperlipidemia, presents from [facility] for evaluation of a brain mass. She presented to [facility] with 3 episodes of left-sided tongue/facial numbness, slurred speech, concerned for having a stroke, found to have a frontal lobe mass on CT, sent to [place] for neurosurgery evaluation. Brain mass: Acute. + Facial numbness/slurred speech. Symptoms now improved. -Head CT reviewed, shows 1.8 cm hyperdense abnormality in the right frontal lobe -Brain MRI reviewed, shows enhancing mass right parietal lobe concerning for neoplasm and possible metastatic disease -Consulted neurosurgery, appreciate recommendations -Started on Decadron 4mg IV q6h and Keppra 500mg po bid -Checking CT of chest/abdomen/pelvis to look for primary lesion TO GO FOR BRAIN BIOPSY TODAY WITH NEUROSURGERY -SWITCH KEPPRA TO LIQUID DUE TO DIFFICULTY WITH PILLS Hypertension/Hyperlipidemia: chronic. BP fairly well-controlled. -restart home meds once med rec is updated DVT prophylaxis: Teds/SCDs; avoid chemical prophylaxis with possible upcoming biopsy/procedure Code Status: FULL CODE Discussed Condition With: RN AND PT AND CM Discharge Planning: PENDING NEUROSURGICAL CLEARANCE
[2018-02-24] MEDS: Senna/Docusate Sodium 8.6/50 MG Tablet PO SCH ×2 (10:39→21:59)
[2018-02-24] MEDS: levETIRAcetam 500 MG Tablet PO SCH (10:43)
[2018-02-24 17:26] LABS: Hemoglobin A1c 5.7 % (4.3-6.0)
[2018-02-24] MEDS: Sod Chloride 0.9% Inj 1,000 ML IV.CONT SCH ×2 (19:07→22:00)
[2018-02-25 05:21] LABS: Baso % (Auto) 0.2 % (0.0-2.0); Hematocrit 40.2 % (35.0-46.0); Hemoglobin 13.6 gm/dL (11.6-15.3); Lymph # (Auto) 1.6 th/mm3 (1.0-4.8); Lymph % (Auto) 16.3 % (9.0-44.0); Mean Corpuscular HGB Conc 33.8 % (32.0-36.0); Mean Corpuscular Hemoglobin 32.3 pg (27.0-34.0); Mean Corpuscular Volume 95.5 fL (80.0-100.0); Mean Platelet Volume 9.8 fL (7.0-11.0); Mono # (Auto) 0.5 th/mm3 (0.0-0.9); Mono % (Auto) 4.9 % (0.0-8.0); Neut # (Auto) 7.7 th/mm3 (1.8-7.7); Neut % (Auto) 78.6 % (16.0-70.0); Platelet Count 189 th/mm3 (150-450); Red Blood Count 4.21 mil/mm3 (4.00-5.30); White Blood Count 9.8 th/mm3 (4.0-11.0)
[2018-02-25 05:45] LABS: Alanine Aminotransferase 21 U/L (10-53); Albumin 3.1 g/dL (3.4-5.0); Alkaline Phosphatase 68 U/L (45-117); Anion Gap 9 meq/L (5-15); Aspartate Aminotransferase 15 U/L (15-37); Blood Urea Nitrogen 17 mg/dL (7-18); Calcium 8.7 mg/dL (8.5-10.1); Carbon Dioxide 24.2 meq/L (21.0-32.0); Chloride 108 meq/L (98-107); Glomerular Filtration Rate 76 mL/min (>89); Glucose,Random 155 mg/dL (74-106); Phosphorus 2.5 mg/dL (2.5-4.9); Potassium 3.8 meq/L (3.5-5.1); Sodium 141 meq/L (136-145); Total Protein 6.8 g/dL (6.4-8.2)
[2018-02-25] MEDS: Senna/Docusate Sodium 8.6/50 MG Tablet PO SCH ×2 (08:33→21:48)
--- NOTE | 2018-02-25 11:41 | P.PNNS ---
Subjective Interval history: No acute events overnight Physical Exam Vital signs: Vital Signs 02/24/18 20:00 02/25/18 00:00 02/25/18 08:00 Temperature 98.1 F 98.1 F 97.4 F L Pulse Rate 60 65 61 Respiratory Rate 18 18 18 Blood Pressure 185/85 H 161/72 H 186/88 H Pulse Oximetry 97 96 95 Intake & Output 02/24/18 02/25/18 02/25/18 18:59 06:59 18:59 Intake Total 1800 / 1800 200 / 200 Balance 1800 / 1800 200 / 200 Weight 55.4 kg Intake: IV 1800 / 1800 200 / 200 NS Inj 1,000 ML @ 75 mls/hr IV. 800 / 800 CONT .[id number] [facility] Rx#:[id number] LR 1000 mL Inj 1,000 ML @ 30 1000 / 1000 200 / 200 mls/hr IV.SIG .Q24H [facility] Rx#: [id number] Other: Date of Last Bowel Movement 02/23/18 02/24/18 Weight On Admission 55.4 kg Narrative: Opens eyes to voice PERRL EOMI Alert and oriented to self, place, year Follows commands x4 No pronator drift Assessment and Plan - Assessment (1) Brain metastasis Code(s): C79.31 - Secondary malignant neoplasm of brain Status: Acute - Plan Ms. Keller is a 62 y/o female presenting with a solitary brain lesion consistent with metastasis. No known primary, but she does have a significant smoking history. CT chest/abdomen/pelvis unremarkable except for 2 cm left hilar lymph node. Plan: She, her and I discussed her treatment options at length. Given that her CT chest/abdomen/pelvis is essentially unremarkable, we will proceed with surgical resection of her brain lesion. We discussed the risks of surgery including, but not limited to: numbness, weakness, paralysis, seizures, non- diagnostic tissue, subtotal resection, infection, bleeding, need for further surgery. We discussed the benefits of surgery including removal of the mass lesion and associated mass effect and diagnosis of the tissue. Highest on the differential is a neoplasm of glial origin (e.g. glioblastoma multiforme) or metastatic lesion (despite CT C/A/P being negative). She was on the OR schedule for the afternoon of 02/24/18, however as the day progressed, the OR put her case on hold due to multiple urgent/emergent cases. Personnel support for intraoperative stereotactic navigation was no longer available when the OR had staffing, and therefore the case was postponed until 02/26/[address] Palomo. I discussed this with her and her and she was in agreement. 1. Proceed tomorrow with right craniotomy for tumor resection by Dr. Palomo. 2. Continue Keppra 500 mg PO BID, dexamethasone 4 mg q6h 3. NPO at midnight
--- NOTE | 2018-02-25 13:56 | P.PNIM ---
Subjective Interval history: patient was seen while eating her lunch. She had no complaints. She stated she is back to baseline. Denied any focal neurological deficits. Physical Exam Vital signs: Vital Signs 02/24/18 20:00 02/25/18 00:00 02/25/18 08:00 Temperature 98.1 F 98.1 F 97.4 F L Pulse Rate 60 65 61 Respiratory Rate 18 18 18 Blood Pressure 185/85 H 161/72 H 186/88 H Pulse Oximetry 97 96 95 02/25/18 12:00 Temperature 97.6 F Pulse Rate 67 Respiratory Rate 18 Blood Pressure 175/83 H Pulse Oximetry 97 Intake & Output 02/24/18 02/25/18 02/25/18 18:59 06:59 18:59 Intake Total 1800 / 1800 200 / 200 Balance 1800 / 1800 200 / 200 Weight 55.4 kg Intake: IV 1800 / 1800 200 / 200 NS Inj 1,000 ML @ 75 mls/hr IV. 800 / 800 CONT .[id number] [facility] Rx#:[id number] LR 1000 mL Inj 1,000 ML @ 30 1000 / 1000 200 / 200 mls/hr IV.SIG .Q24H [facility] Rx#: [id number] Other: Date of Last Bowel Movement 02/23/18 02/24/18 Weight On Admission 55.4 kg - Constitutional no acute distress - Routine Neck Exam Present: supple, normal carotid upstroke, trachea midline, tracheal deviation - Routine Respiratory Exam Present: CTA bilaterally - Routine Cardiovascular Exam Present: RRR, S1, S2 - Routine Abdominal Exam Present: soft, normoactive bowel sounds Comments: no TTP - Routine Extremities Exam Present: edema Comments: 5/5 UE and LE strength. sensation grossly intact - Routine Neurological Exam Present: alert, oriented X3, moving all extremities, normal tone Results - Labs CBC & Chem 7: 02/25/18 04:55 02/25/18 04:55 Laboratory Results - last 24 hr 02/24/18 02/24/18 02/24/18 13:45 13:45 13:45 WBC RBC Hgb Hct MCV MCH MCHC RDW Plt Count MPV Neut % (Auto) Lymph % (Auto) Garden % (Auto) Eos % (Auto) Baso % (Auto) Neut # (Auto) Lymph # (Auto) Garden # (Auto) Eos # (Auto) Baso # (Auto) WBC Differential Differential Comment Sodium Potassium Chloride Carbon Dioxide Anion Gap BUN Creatinine Estimated GFR Random Glucose Hemoglobin A1c 5.7 Calcium Phosphorus Magnesium Total Bilirubin AST ALT Alkaline Phosphatase Total Protein Albumin TSH 0.074 L Free T4 1.13 02/25/18 02/25/18 04:55 04:55 WBC 9.8 RBC 4.21 Hgb 13.6 Hct 40.2 MCV 95.5 MCH 32.3 MCHC 33.8 RDW 14.0 Plt Count 189 MPV 9.8 Neut % (Auto) 78.6 H Lymph % (Auto) 16.3 Garden % (Auto) 4.9 Eos % (Auto) 0.0 Baso % (Auto) 0.2 Neut # (Auto) 7.7 Lymph # (Auto) 1.6 Garden # (Auto) 0.5 Eos # (Auto) 0.0 Baso # (Auto) 0.0 WBC Differential . Differential Comment Auto diff final Sodium 141 Potassium 3.8 Chloride 108 H Carbon Dioxide 24.2 Anion Gap 9 BUN 17 Creatinine 0.77 Estimated GFR 76 L Random Glucose 155 H Hemoglobin A1c Calcium 8.7 Phosphorus 2.5 Magnesium 2.0 Total Bilirubin 0.2 AST 15 ALT 21 Alkaline Phosphatase 68 Total Protein 6.8 D Albumin 3.1 L TSH Free T4 Assessment and Plan - Plan 62-year-old female with history of hypertension, hyperlipidemia, presents from [facility] for evaluation of a brain mass. She presented to [facility] with 3 episodes of left-sided tongue/facial numbness, slurred speech, concerned for having a stroke, found to have a frontal lobe mass on CT, sent to [place] for neurosurgery evaluation. Brain mass: Acute. + Facial numbness/slurred speech symptoms resolved. -Head CT reviewed, shows 1.8 cm hyperdense abnormality in the right frontal lobe -Brain MRI reviewed, shows enhancing mass right parietal lobe concerning for neoplasm and possible metastatic disease -Neurosurgery consulted appreciate recommendations -continue on Decadron 4mg IV q6h and Keppra 500mg po bid -CT of chest/abdomen/pelvis negative. -patient scheduled for right craniotomy for tumor resection by Dr. Palomo tomorrow. Hypertension/Hyperlipidemia: chronic. BP fairly well-controlled. -restart home meds once med rec is updated DVT prophylaxis: Teds/SCDs; avoid chemical prophylaxis with possible upcoming biopsy/procedure
[2018-02-25] MEDS: Sod Chloride 0.9% Inj 1,000 ML IV.CONT SCH (16:48)
[2018-02-26 04:32] LABS: Calcium 8.8 mg/dL (8.5-10.1); Carbon Dioxide 24.8 meq/L (21.0-32.0); Potassium 3.9 meq/L (3.5-5.1)
[2018-02-26] MEDS: Sod Chloride 0.9% Inj 1,000 ML IV.CONT SCH ×2 (05:17→19:51)
[2018-02-26] MEDS: Senna/Docusate Sodium 8.6/50 MG Tablet PO SCH ×2 (08:14→20:06)
--- NOTE | 2018-02-26 09:31 | P.PNIM ---
Subjective Interval history: patient is walking in room anxious. She had questions for the neurosurgeon on who will be present during the procedure. I told her we can put a call out to let Dr. Palomo know but she stated that is okay that she will ask in preop. her is at the bedside during the interview. denied any neurological deficits. Denied any MIMS or visual changes. Physical Exam Vital signs: Vital Signs 02/25/18 12:00 02/25/18 16:00 02/25/18 20:00 Temperature 97.6 F 97.9 F 97.8 F Pulse Rate 67 68 68 Respiratory Rate 18 19 16 Blood Pressure 175/83 H 178/93 H 197/83 H Pulse Oximetry 97 97 98 02/26/18 00:00 02/26/18 01:30 02/26/18 04:00 Temperature 97.5 F L 97.3 F L Pulse Rate 64 60 Respiratory Rate 16 16 16 Blood Pressure 191/86 H 174/81 H Pulse Oximetry 93 L 95 02/26/18 08:00 Temperature 97.5 F L Pulse Rate 58 L Respiratory Rate 16 Blood Pressure 174/81 H Pulse Oximetry 95 Intake & Output 02/25/18 02/26/18 02/26/18 18:59 06:59 18:59 Intake Total 1200 / 1200 Balance 1200 / 1200 Intake: Oral 1200 / 1200 Other: # Voids 5 Date of Last Bowel Movement 02/24/18 02/24/18 - Constitutional no acute distress - Routine HEENT Exam Head: Present: normocephalic, atraumatic Eye: Present: EOMI, PERRL ENT: Present: mucous membranes moist - Routine Neck Exam Present: supple, full ROM - Routine Respiratory Exam Present: CTA bilaterally Comments: no R/m/g - Routine Cardiovascular Exam Present: RRR, S1, S2 - Routine Abdominal Exam Present: soft, normoactive bowel sounds Comments: no TTP - Routine Extremities Exam Present: edema Results - Labs CBC & Chem 7: 02/25/18 04:55 02/26/18 03:24 Laboratory Results - last 24 hr 02/26/18 03:24 Sodium 141 Potassium 3.9 Chloride 107 Carbon Dioxide 24.8 Anion Gap 9 BUN 21 H Creatinine 0.80 Estimated GFR 73 L Random Glucose 123 H Calcium 8.8 Assessment and Plan - Plan 62-year-old female with history of hypertension, hyperlipidemia, presents from [facility] for evaluation of a brain mass. She presented to [facility] with 3 episodes of left-sided tongue/facial numbness, slurred speech, concerned for having a stroke, found to have a frontal lobe mass on CT, sent to [place] for neurosurgery evaluation. Brain mass: Acute. + Facial numbness/slurred speech symptoms resolved. -Head CT reviewed, shows 1.8 cm hyperdense abnormality in the right frontal lobe -Brain MRI reviewed, shows enhancing mass right parietal lobe concerning for neoplasm and possible metastatic disease -Neurosurgery consulted appreciate recommendations -continue on Decadron 4mg IV q6h and Keppra 500mg po bid -CT of chest/abdomen/pelvis negative. -patient scheduled for right craniotomy for tumor resection by Dr. Palomo today. Hypertension/Hyperlipidemia: chronic. BP fairly well-controlled. -continue with medication. DVT prophylaxis: Teds/SCDs; avoid chemical prophylaxis due to surgery.
[2018-02-26] MEDS ORDERED: Bupivacaine/Epinephrine 0.5% Inj 50 ML Vial ONE (10:12)
[2018-02-26] MEDS ORDERED: Lidocaine PF 1% Inj 5 ML Syringe INFILTRATN ONE (12:00)
[2018-02-26] MEDS ORDERED: Metoprolol Inj 5 MG/5 ML Vial IV.PUSH ONE (12:00)
[2018-02-26] MEDS ORDERED: hydrALAZINE HCl Inj 20 MG/ML Vial IV.PUSH ONE (12:00)
[2018-02-26] MEDS ORDERED: Sugammadex Inj 200 MG/2 ML Vial IV.PUSH ONE (12:45)
[2018-02-26] MEDS: Gelatin Size 100 Topical Foam ONE ×2 (13:20→19:47)
[2018-02-26] MEDS: Thrombin Topical Soln 5,000 UNIT Vial TOPICAL ONE ×2 (13:21→19:47)
[2018-02-26] MEDS: Lidocaine 1% Inj 50 ML Vial ONE ×2 (13:21→19:47)
[2018-02-26] MEDS ORDERED: niCARdipine Inj 25 MG/10 ML Vial ONE (13:33)
[2018-02-26] MEDS ORDERED: fentaNYL Citrate Inj 100 MCG/2 ML Ampul ONE ×2 (13:42→13:43)
--- NOTE | 2018-02-26 13:49 | P.OP ---
- Postoperative Diagnosis (1) Brain metastasis - Preoperative Diagnosis Brain lesion - Postoperative Diagnosis Metastatic adenocarcinoma with papillary features Date of procedure: 02/26/18 Procedure: Right craniotomy and resection of right inferior frontal tumor Use of stereotaxy (Brainlab) Use of microdissection (loupe magnification) Anesthesia: REJI Surgeon: Fox Palomo MD Estimated blood loss (mL): 25 Pathology: other (frozen: metastatic adenocarcinoma with papillary features) Operation and Findings: Description of Procedure: Patient was brought to [place] [address] and the procedure was done under general anesthesia. Workman 3pin headrest was used for fixation and Brainlab stereotaxy was registered, with a bump under right shoulder. All pressure points padded. Right frontal scalp was clipped, then prepped in the usual sterile fashion. Scalp was infiltrated with local anesthetic, then opened sharply to bone and myocutaneous flap reflected anteriorly after using Li clips. Perforating bit used to make two burrholes, one at keyhole and one at temporal base, connected by footplate to elevate the bone flap. Dura was reflected anteriorly. Inferior frontal lobe was identified superior to sylvian fissure, care was taken to protect sylvian vessels. Cottonoid used to protect sylvian fissue and bipolar cautery was used to perform a corticectomy in inferior frontal lobe. Clearly abnormal tissue was identified and resected, with some purulence noted and sent both to pathology for frozen and permanent as well as microbiology. Specimen returned consistent with metastatic adenocarcinoma with papillary features. Hemostasis assured with irrigation, and surgifoam. Dura reapproximated with 4-0 Nurulon, then a gelfoam placed under the bone flap plated with the [place] system. Incision closed with 2-0 Vicryl for temporalis fascia, then subcutaneous and heide for skin. Sterile dressings applied. Patient taken out of pins, awakened, extubated and taken to PACU in stable condition, following commands x 4. Plan for ICU overnight admission, Keppra, Decadron taper 4mg q6 to start, neuro checks q1hx4 then q2h.
--- NOTE | 2018-02-26 22:25 | P.PNNS ---
Subjective Interval history: Surgery today Physical Exam Vital signs: Vital Signs 02/26/18 00:00 02/26/18 01:30 02/26/18 04:00 Temperature 97.5 F L 97.3 F L Pulse Rate 64 60 Respiratory Rate 16 16 16 Blood Pressure 191/86 H 174/81 H Pulse Oximetry 93 L 95 02/26/18 08:00 02/26/18 13:30 02/26/18 13:45 Temperature 97.5 F L 97.8 F Pulse Rate 58 L 85 82 Respiratory Rate 16 20 20 Blood Pressure 174/81 H 165/84 H 163/79 H Pulse Oximetry 95 100 100 02/26/18 14:00 02/26/18 14:15 02/26/18 15:15 Temperature Pulse Rate 79 72 72 Respiratory Rate 18 20 16 Blood Pressure 151/75 H 142/73 H 150/72 H Pulse Oximetry 100 100 100 02/26/18 15:45 02/26/18 16:00 02/26/18 20:00 Temperature 95.5 F L 98.6 F Pulse Rate 72 62 72 Respiratory Rate 20 15 15 Blood Pressure 150/72 H 166/73 H 145/67 H Pulse Oximetry 100 97 100 Intake & Output 02/26/18 02/26/18 02/27/18 06:59 18:59 06:59 Intake Total 1780 / 1780 Output Total 1725 / 1725 Balance 55 / 55 Intake: Oral 480 / 480 Anesthesia Amount 1300 / 1300 Output: Estimated Blood Loss 25 / 25 Urine Amount (Catheter) 1700 / 1700 Indwelling Urethral Catheter 1700 / 1700 Other: Date of Last Bowel Movement 02/24/18 02/24/18 02/24/18 Narrative: Opens eyes to voice PERRL EOMI Alert and oriented to self, place, year Follows commands x4 No pronator drift Incision c/d/i/ right crani - Urinary Catheter Management Indwelling Urethral Catheter Cath placed during this visit: yes Reason for continuing: Hourly intake/output Insertion date: 02/26/18 Insertion time: 12:18 Assessment and Plan - Assessment (1) Brain metastasis Code(s): C79.31 - Secondary malignant neoplasm of brain Status: Acute - Plan Ms. Keller is a 62 y/o female presenting with a solitary brain lesion consistent with metastasis. No known primary, but she does have a significant smoking history. CT chest/abdomen/pelvis unremarkable except for 2 cm left hilar lymph node. Plan: She, her and I discussed her treatment options at length. Given that her CT chest/abdomen/pelvis is essentially unremarkable, we will proceed with surgical resection of her brain lesion. We discussed the risks of surgery including, but not limited to: numbness, weakness, paralysis, seizures, non- diagnostic tissue, subtotal resection, infection, bleeding, need for further surgery. We discussed the benefits of surgery including removal of the mass lesion and associated mass effect and diagnosis of the tissue. Highest on the differential is a neoplasm of glial origin (e.g. glioblastoma multiforme) or metastatic lesion (despite CT C/A/P being negative). She was on the OR schedule for the afternoon of 02/24/18, however as the day progressed, the OR put her case on hold due to multiple urgent/emergent cases. Personnel support for intraoperative stereotactic navigation was no longer available when the OR had staffing, and therefore the case was postponed until 02/26/[address] Palomo. I discussed this with her and her and she was in agreement. 1. Right craniotomy today-- frozen path was surprisingly consistent with metastatic adenoca with papillary features. Her PET had showed some hilar adenopathy which was originally planned for 3 month follow-up imaging-- will reconsult med and rad onc. 2. Continue Keppra 500 mg PO BID, dexamethasone 4 mg q6h 3. Neuro q1 overnight, HOB 30, ADAT
[2018-02-27 04:22] LABS: Hematocrit 42.8 % (35.0-46.0); Hemoglobin 14.2 gm/dL (11.6-15.3); Mean Corpuscular HGB Conc 33.1 % (32.0-36.0); Mean Corpuscular Hemoglobin 31.4 pg (27.0-34.0); Mean Corpuscular Volume 94.8 fL (80.0-100.0); Mean Platelet Volume 9.9 fL (7.0-11.0); Platelet Count 218 th/mm3 (150-450); Red Blood Count 4.51 mil/mm3 (4.00-5.30); Red Cell Distribution Width 14.6 % (11.6-17.2); White Blood Count 19.7 th/mm3 (4.0-11.0)
[2018-02-27] MEDS: Senna/Docusate Sodium 8.6/50 MG Tablet PO SCH ×2 (08:35→21:19)
[2018-02-27] MEDS ORDERED: Lisinopril 10 MG Tablet PO SCH (09:00)
--- NOTE | 2018-02-27 12:19 | P.PNNS ---
Subjective Interval history: Doing well after surgery. Some mild pain while chewing on the right, expected. Mild word finding difficulty, nearly improved to normal. Physical Exam Vital signs: Vital Signs 02/26/18 13:30 02/26/18 13:45 02/26/18 14:00 Temperature 97.8 F Pulse Rate 85 82 79 Respiratory Rate 20 20 18 Blood Pressure 165/84 H 163/79 H 151/75 H Pulse Oximetry 100 100 100 02/26/18 14:15 02/26/18 15:15 02/26/18 15:45 Temperature Pulse Rate 72 72 72 Respiratory Rate 20 16 20 Blood Pressure 142/73 H 150/72 H 150/72 H Pulse Oximetry 100 100 100 02/26/18 16:00 02/26/18 20:00 02/27/18 00:00 Temperature 95.5 F L 98.6 F 98.3 F Pulse Rate 62 72 60 Respiratory Rate 15 15 15 Blood Pressure 166/73 H 145/67 H 168/79 H Pulse Oximetry 97 100 96 02/27/18 04:00 02/27/18 08:00 Temperature 98.4 F 98.1 F Pulse Rate 60 54 L Respiratory Rate 14 11 L Blood Pressure 182/83 H 167/79 H Pulse Oximetry 96 97 Intake & Output 02/26/18 02/27/18 02/27/18 18:59 06:59 18:59 Intake Total 1780 / 1780 723 / 723 143 / 143 Output Total 1725 / 1725 1025 / 1025 Balance 55 / 55 -302 / -302 143 / 143 Weight 56.2 kg Intake: IV 723 / 723 143 / 143 NS Inj 1,000 ML @ 75 mls/hr IV. 723 / 723 143 / 143 CONT .[id number] [facility] Rx#:[id number] Oral 480 / 480 Anesthesia Amount 1300 / 1300 Output: Estimated Blood Loss 25 / 25 Urine Amount (Catheter) 1700 / 1700 1025 / 1025 Indwelling Urethral Catheter 1700 / 1700 1025 / 1025 Other: Date of Last Bowel Movement 02/24/18 02/24/18 02/24/18 Narrative: Incision c/d/i A&O x 3 CN II-XII intact Motor 5/5 UE/LE - Urinary Catheter Management Indwelling Urethral Catheter Cath placed during this visit: yes, but has since been removed by the nurse Reason for continuing: Decision to DC catheter Insertion date: 02/26/18 Insertion time: 12:18 Removal date: 02/27/18 Removal time: 11:59 Assessment and Plan - Assessment (1) Brain metastasis Code(s): C79.31 - Secondary malignant neoplasm of brain Status: Acute - Plan Ms. Keller is a 62 y/o female presenting with a solitary brain lesion consistent with metastasis. No known primary, but she does have a significant smoking history. CT chest/abdomen/pelvis unremarkable except for 2 cm left hilar lymph node. Plan: She, her and I discussed her treatment options at length. Given that her CT chest/abdomen/pelvis is essentially unremarkable, we will proceed with surgical resection of her brain lesion. We discussed the risks of surgery including, but not limited to: numbness, weakness, paralysis, seizures, non- diagnostic tissue, subtotal resection, infection, bleeding, need for further surgery. We discussed the benefits of surgery including removal of the mass lesion and associated mass effect and diagnosis of the tissue. Highest on the differential is a neoplasm of glial origin (e.g. glioblastoma multiforme) or metastatic lesion (despite CT C/A/P being negative). She was on the OR schedule for the afternoon of 02/24/18, however as the day progressed, the OR put her case on hold due to multiple urgent/emergent cases. Personnel support for intraoperative stereotactic navigation was no longer available when the OR had staffing, and therefore the case was postponed until 02/26/[address] Palomo. I discussed this with her and her and she was in agreement. 1. Right craniotomy 02/26/18-- frozen path was surprisingly consistent with metastatic adenoca with papillary features. Her CT had showed some hilar adenopathy which was originally planned for 3 month follow-up imaging-- will reconsult med and rad onc. 2. Continue Keppra 500 mg PO BID, dexamethasone 2 mg q6h 3. D/c francois, transfer to floor, Activity as tolerated, PT/OT
[2018-02-27] MEDS: Sod Chloride 0.9% Inj 1,000 ML IV.CONT SCH ×2 (15:22→18:07)
--- NOTE | 2018-02-27 16:48 | P.PNIM ---
Subjective Interval history: Follow-up for brain tumor status post craniotomy Patient had no complaints. She stated that she feels the same. She denies any headache, nausea vomiting, visual changes, or focal neurological deficits. Patient's and friend at the bedside during the interview. Patient has transfer order to the floor. Physical Exam Vital signs: Vital Signs 02/26/18 20:00 02/27/18 00:00 02/27/18 04:00 Temperature 98.6 F 98.3 F 98.4 F Pulse Rate 72 60 60 Respiratory Rate 15 15 14 Blood Pressure 145/67 H 168/79 H 182/83 H Pulse Oximetry 100 96 96 02/27/18 08:00 02/27/18 12:00 Temperature 98.1 F 98.4 F Pulse Rate 54 L 65 Respiratory Rate 11 L 17 Blood Pressure 167/79 H 159/77 H Pulse Oximetry 97 95 Intake & Output 02/26/18 02/27/18 02/27/18 18:59 06:59 18:59 Intake Total 1780 / 1780 723 / 723 143 / 143 Output Total 1725 / 1725 1025 / 1025 Balance 55 / 55 -302 / -302 143 / 143 Weight 56.2 kg Intake: IV 723 / 723 143 / 143 NS Inj 1,000 ML @ 75 mls/hr IV. 723 / 723 143 / 143 CONT .[id number] [facility] Rx#:[id number] Oral 480 / 480 Anesthesia Amount 1300 / 1300 Output: Estimated Blood Loss 25 / 25 Urine Amount (Catheter) 1700 / 1700 1025 / 1025 Indwelling Urethral Catheter 1700 / 1700 1025 / 1025 Other: Date of Last Bowel Movement 02/24/18 02/24/18 02/24/18 - Constitutional no acute distress - Routine HEENT Exam Comments: Bandage and place at craniotomy site. - Routine Respiratory Exam Present: CTA bilaterally - Routine Cardiovascular Exam Present: RRR, S1, S2 Comments: No rubs murmurs or gallops. - Routine Abdominal Exam Present: soft, normoactive bowel sounds Comments: Negative tenderness to palpation or peritoneal signs. - Routine Neurological Exam Present: alert, oriented X3 Cranial nerve II to XII is intact. Coordination intact. Sensation and motor grossly intact. - Urinary Catheter Management Indwelling Urethral Catheter Cath placed during this visit: yes, but has since been removed by the nurse Reason for continuing: Decision to DC catheter Insertion date: 02/26/18 Insertion time: 12:18 Removal date: 02/27/18 Removal time: 11:59 Results - Labs CBC & Chem 7: 02/27/18 04:01 02/26/18 03:24 Laboratory Results - last 24 hr 02/27/18 04:01 WBC 19.7 H RBC 4.51 Hgb 14.2 Hct 42.8 MCV 94.8 MCH 31.4 MCHC 33.1 RDW 14.6 Plt Count 218 MPV 9.9 Microbiology 02/26/18 12:40 Tissue - Head Acid Fast Bacilli Smear - Final No acid fast bacilli seen 02/26/18 12:40 Tissue - Head Gram Stain - Final 02/26/18 12:40 Tissue - Head Wound Culture - Preliminary No growth in 24 hours 02/26/18 12:40 Tissue - Head Fungal Smear - Final No fungal elements seen Assessment and Plan - Plan 62-year-old female with history of hypertension, hyperlipidemia, presents from [facility] for evaluation of a brain mass. She presented to [facility] with 3 episodes of left-sided tongue/facial numbness, slurred speech, concerned for having a stroke, found to have a frontal lobe mass on CT, sent to [facility] for neurosurgery evaluation. Brain mass: Acute. + Facial numbness/slurred speech symptoms resolved. -Head CT reviewed, shows 1.8 cm hyperdense abnormality in the right frontal lobe -Brain MRI reviewed, shows enhancing mass right parietal lobe concerning for neoplasm and possible metastatic disease -s/p right craniotomy and resection of right inferior frontal tumor by Dr. 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 -continue on Decadron 4mg IV q6h and Keppra 500mg po bid. -CT of chest/abdomen/pelvis showing isolated 2 cm lymph node in the left hilar region and benign 8.5 mm cyst in the right hepatic lobe. Oncologist was reconsulted. Patient will need a PET scan. Hypertension/Hyperlipidemia: chronic. -continue with medication. Blood pressure uncontrolled we will add amlodipine. DVT prophylaxis: Teds/SCDs; avoid chemical prophylaxis due to surgery.
--- NOTE | 2018-02-27 17:22 | P.CON ---
History of Present Illness Service: Radiation oncology Consult date: 02/27/18 Requesting Physician: Abad Li Reason for Consult: Brain metastases Primary Care Provider: UNKNOWN Chief Complaint: Transient left facial numbness/weakness History of Present Illness: 62-year-old white female from [place] with the history of several weeks of left-sided facial weakness and slurred speech. Result of the episodes the patient went to the ED where she was evaluated and a CT was performed which showed, which showed a mass and as a result was transferred to [facility]. When she was evaluated and underwent surgical resection. Pathology was positive for adenocarcinoma, consistent probably from lung primary. A consult has been placed for the patient to be evaluated for possible radiotherapy treatment options. Of note patient also has a mass within the hilar region. Patient is a known smoker, she states he quit smoking since she has been in the hospital. also had a history of lung carcinoma diagnosed in 2009. Review of Systems Constitutional: Reports fatigue, Reports lack of energy Eyes: Denies blind spots, Denies blurry vision, Denies bulging eyes, Denies change in vision, Denies double vision, Denies discharge, Denies dry eyes, Denies floaters, Denies irritation, Denies itchy eyes, Denies loss of vision, Denies pain, Denies requires corrective lenses, Denies sensitivity to light, Denies other Ears, Nose, Mouth, and Throat: Denies abnormal hearing, Denies bleeding gums, Denies bad breath, Denies change in voice, Denies dental pain, Denies difficulty swallowing, Denies dizziness, Denies dry mouth, Denies ear discharge , Denies ear pain, Denies facial pain, Denies headache(s), Denies hearing loss, Denies hoarseness, Denies lip swelling, Denies nosebleed, Denies mouth lesions, Denies mouth pain, Denies nasal congestion, Denies nasal discharge, Denies nasal obstruction, Denies nasal trauma, Denies neck lump, Denies neck pain, Denies nose pain, Denies pain with swallowing, Denies poor balance, Denies post nasal drip, Denies ringing in the ears, Denies sinus pain, Denies sinus pressure , Denies sore throat, Denies throat swelling, Denies tongue swelling, Denies other Cardiovascular: Denies chest pain, Denies chest pain at rest, Denies chest pain with activity, Denies excessive sweating, Denies fainting, Denies fast heart rate, Denies foot swelling, Denies generalized swelling, Denies irregular heart rhythm, Denies leg pain with activity, Denies leg sores, Denies leg swelling, Denies lightheadedness, Denies radiating jaw, neck or arm pain, Denies rapid, pounding, or irregular heartbeat, Denies shortness of breath, Denies shortness of breath with activity, Denies shortness of breath when lying down, Denies shortness of breath causing sudden awakening, Denies slow heart rate, Denies other Respiratory: Reports cough, Reports shortness of breath with activity Gastrointestinal: Denies abdominal pain, Denies belching, Denies black, tarry stools, Denies bloating, Denies bright, red blood in stools, Denies change in bowel habits, Denies constant urge to pass stool, Denies change in stools, Denies coffee ground vomit, Denies constipation, Denies cramping, Denies difficulty swallowing, Denies excessive passing of gas, Denies feeling full early, Denies heartburn, Denies incontinent of stools, Denies loose stools, Denies nausea, Denies pain with swallowing, Denies vomiting, Denies vomiting blood, Denies other Genitourinary: Denies abnormal periods, Denies abnormal vaginal bleeding, Denies absent period, Denies bleeding between periods, Denies blood in urine, Denies difficulty starting urination, Denies difficulty urinating, Denies dribbling after urination, Denies frequent nighttime urination, Denies genital itching, Denies genital lesions, Denies heavy periods, Denies hot flashes, Denies light periods, Denies nipple discharge, Denies painful intercourse, Denies painful periods, Denies painful urination, Denies pelvic pain, Denies prolapse symptoms, Denies sexual problems, Denies side pain, Denies urinary incontinence, Denies urinary urgency, Denies vaginal discharge, Denies vaginal dryness, Denies vaginal odor, Denies vaginal itching, Denies other Musculoskeletal: Denies abnormal walking, Denies back pain, Denies body aches, Denies decreased muscle mass, Denies deformity, Denies joint pain, Denies joint swelling, Denies limited joint movement, Denies loss of height, Denies muscle cramps, Denies muscle weakness, Denies neck pain, Denies numbness, Denies radiating pain into limb, Denies stiffness, Denies tingling, Denies other Skin/Breast: Denies acne, Denies bleeding lesions, Denies boil, Denies breast swelling, Denies breast skin changes, Denies breast pain, Denies breast lump, Denies change in breast shape, Denies change in hair, Denies change in skin color, Denies changing lesions, Denies dry skin, Denies excessive hair growth, Denies hair loss, Denies itching, Denies lesions, Denies nail changes, Denies new lesions, Denies nipple discharge, Denies non-healing lesions, Denies redness , Denies sensitivity to light, Denies rash, Denies skin pain, Denies skin ulcer , Denies sores, Denies stretch silva, Denies unusual bruising, Denies wounds, Denies yellowing of the skin, Denies other Neurologic: Reports abnormal speech Comments: Patient states her speech pattern is improving and is almost completely normal. She has had periods where she has some issues of finding words but becomes quickly to her. She denies any further neurological issues or problems. Psychiatric: Denies abnormal sleep pattern, Denies anxiety, Denies behavioral changes, Denies change in appetite, Denies change in sex drive, Denies confusion , Denies depression, Denies difficulty concentrating, Denies hearing things others do not hear, Denies hopelessness, Denies irritability, Denies lack of enjoyment, Denies memory loss, Denies mood swings, Denies panic attacks, Denies paranoia, Denies seeing things others do not see, Denies sensing things others do not sense, Denies tactile hallucinations, Denies thoughts of hurting/killing others, Denies thoughts of hurting/killing yourself, Denies other Endocrine: Denies cold intolerance, Denies excessive sweating, Denies flushing, Denies heat intolerance, Denies increased hunger, Denies increased thirst, Denies increased urination, Denies rapid, pounding, or irregular heartbeat, Denies other Hematologic/Lymphatic: Denies easy bleeding, Denies easy bruising, Denies enlarged lymph nodes, Denies other Allergic/Immunologic: Denies GI upset with certain foods, Denies hives, Denies itchy eyes, Denies lip swelling, Denies seasonal runny nose, Denies throat swelling, Denies tongue swelling, Denies wheezing, Denies other PMFSH - History History Provided By: Patient - Medical History Medical History: Medical History (Last Reviewed 02/26/18 @ 08:35 by Fred Seymour MD) Hyperlipidemia Hypertension - Family History Family History: Family History (Last Updated 02/22/18 @ 03:16 by Makenzie Isaacs MD) Other Family history normal - Tobacco History Second Hand Smoke Exposure: Yes Tobacco Use In Past 30 Days: Yes Smoking Status: Heavy tobacco smoker Tobacco Type: Cigarettes - Alcohol History How Often Do You Have a Drink Containing Alcohol: 2 to 3 times a week - Substance Use History Substance History: No History of Abuse - Travel History Recent Travel in the [place] Within the Last 8 Weeks: No Recent Travel Out of the Country Within the Last 8 Weeks: No - Immunization History Tetanus Immunization: Unsure Hx Influenza Vaccine This Season: No Medications and Allergies Active Medications: Active Medications Acetaminophen (Tylenol) 650 mg PO Q4H PRN PRN Reason: Temp > 100.4 Al Hydroxide/Mg Hydroxide (Milk Of Magnesia Liq) 30 ml PO Q12H PRN PRN Reason: Mild Constipation Bisacodyl (Dulcolax Supp) 10 mg RECTAL DAILY PRN PRN Reason: SEVERE CONSITIPATION Dexamethasone Sodium Phosphate (Decadron Inj) 4 mg IV.PUSH Q8HR [facility] Last Admin: 02/27/18 15:21 Dose: 4 mg Enalaprilat (Vasotec Inj) 1.25 mg IV.PUSH Q6H PRN PRN Reason: SBP>180 or DBP>100 Last Admin: 02/27/18 03:59 Dose: 1.25 mg Sodium Chloride (Ns Inj) 1,000 mls @ 75 mls/hr IV.CONT .[id number] [facility] Last Admin: 02/27/18 15:22 Dose: Not Given Lactulose (Lactulose Liq) 30 ml PO DAILY PRN PRN Reason: SEVERE CONSITIPATION Levetiracetam (Keppra Liq) 500 mg NG/OG BID [facility] Last Admin: 02/27/18 08:35 Dose: 500 mg Lisinopril (Prinivil) 10 mg PO DAILY [facility] Last Admin: 02/27/18 09:22 Dose: 10 mg Ondansetron HCl (Zofran Inj) 4 mg IV.PUSH Q6H PRN PRN Reason: NAUSEA OR VOMITING Senna/Docusate Sodium (Mallory-Colace) 1 tab PO BID [facility] Last Admin: 02/27/18 08:35 Dose: 1 tab Sennosides (Senokot) 17.2 mg PO Q12H PRN PRN Reason: Moderate Constipation Sodium Chloride (Ns Flush) 2 ml IV.FLUSH BID [facility] Last Admin: 02/27/18 08:35 Dose: 2 ml Sodium Chloride (Ns Flush) 2 ml IV.FLUSH PRN PRN PRN Reason: FLUSH AFTER USING IV ACCESS Temazepam (Restoril) 15 mg PO HS PRN PRN Reason: INSOMNIA Allergies Allergy/AdvReac Type Severity Reaction Status Date / Time No Known Allergies Allergy Unverified 02/21/18 22:13 Home Medications Medication Instructions Recorded Confirmed Type No Known Home Medications 02/21/18 02/21/18 History Physical Exam Vital signs: Vital Signs 02/26/18 20:00 02/27/18 00:00 02/27/18 04:00 Temperature 98.6 F 98.3 F 98.4 F Pulse Rate 72 60 60 Respiratory Rate 15 15 14 Blood Pressure 145/67 H 168/79 H 182/83 H Pulse Oximetry 100 96 96 02/27/18 08:00 02/27/18 12:00 Temperature 98.1 F 98.4 F Pulse Rate 54 L 65 Respiratory Rate 11 L 17 Blood Pressure 167/79 H 159/77 H Pulse Oximetry 97 95 Intake & Output 02/26/18 02/27/18 02/27/18 18:59 06:59 18:59 Intake Total 1780 / 1780 723 / 723 143 / 143 Output Total 1725 / 1725 1025 / 1025 Balance 55 / 55 -302 / -302 143 / 143 Weight 56.2 kg Intake: IV 723 / 723 143 / 143 NS Inj 1,000 ML @ 75 mls/hr IV. 723 / 723 143 / 143 CONT .[id number] [facility] Rx#:[id number] Oral 480 / 480 Anesthesia Amount 1300 / 1300 Output: Estimated Blood Loss 25 / 25 Urine Amount (Catheter) 1700 / 1700 1025 / 1025 Indwelling Urethral Catheter 1700 / 1700 1025 / 1025 Other: Date of Last Bowel Movement 02/24/18 02/24/18 02/24/18 - Constitutional no acute distress, thin, cooperative - Routine HEENT Exam Head: Present: normocephalic, scalp tenderness Eye: Present: EOMI ENT: Present: mucous membranes moist, nares patent, external ear normal - Routine Neck Exam Present: supple, trachea midline - Routine Respiratory Exam Comments: To auscultation is decreased ventilatory inspiratory effort which is equal and bilateral. Lungs were clear to auscultation bilaterally. - Routine Cardiovascular Exam Comments: Heart is regular rate and rhythm - Routine Abdominal Exam Present: soft - Routine Extremities Exam Comments: No lower extremity edema detected - Routine Skin Exam Present: intact - Routine Neurological Exam Present: alert, oriented X3, moving all extremities, hearing grossly intact Patient has only mild issues with expressing thoughts and speaking, almost no expressive aphasia remains - Routine Psychiatric Exam Present: normal affect, normal thought process, cooperative, good insight, good judgment - Urinary Catheter Management Indwelling Urethral Catheter Cath placed during this visit: yes, but has since been removed by the nurse Reason for continuing: Decision to DC catheter Insertion date: 02/26/18 Insertion time: 12:18 Removal date: 02/27/18 Removal time: 11:59 Assessment and Plan - Assessment (1) Brain metastasis Code(s): C79.31 - Secondary malignant neoplasm of brain Status: Acute - Plan I discussed with the patient's the merits of adjuvant radiation therapy to the postoperative bed via radiosurgery. I also advised the patient that she will need a metastatic workup when she gets release including a PET scan. Patient advised that I would recommend doing the radiation therapy to the brain 4-6 weeks after surgical resection. I also recommend she has an MRI of the brain previous to the radiation planning. Patient states that she is going to use the same oncologist that her use in [place]. She will seek treatments in the [place] area. I gave them my phone number for the office in case they need any assistance. They were advised that if for some reason they could not do the treatments in [place] to call me and I will be more than happy to assist. All the questions were answered. They were advised if I could be of any further assistance or to please let me know. Otherwise no further contact will be made with the patient. Discharge Planning: Patient can be discharged when the admitting team deems feasible.
--- NOTE | 2018-02-27 21:29 | P.PNONC ---
Subjective Interval history: Patient is s/p right craniotomy and resection of right inferior frontal tumor. Frozen section with evidence of metastatic adenocarcinoma. She is recovering well from neurosurgery. She has been seen by radiation oncology team. Objective Vital Signs/Intake & Output: Vital Signs 02/27/18 00:00 02/27/18 04:00 02/27/18 08:00 Temperature 98.3 F 98.4 F 98.1 F Pulse Rate 60 60 54 L Respiratory Rate 15 14 11 L Blood Pressure 168/79 H 182/83 H 167/79 H Pulse Oximetry 96 96 97 02/27/18 12:00 02/27/18 16:00 02/27/18 20:00 Temperature 98.4 F 98.6 F 98.4 F Pulse Rate 65 69 79 Respiratory Rate 17 14 15 Blood Pressure 159/77 H 158/70 H 162/78 H Pulse Oximetry 95 Intake & Output 02/27/18 02/27/18 02/28/18 06:59 18:59 06:59 Intake Total 723 / 723 543 / 543 Output Total 1025 / 1025 Balance -302 / -302 543 / 543 Weight 56.2 kg Intake: IV 723 / 723 143 / 143 NS Inj 1,000 ML @ 75 mls/hr IV. 723 / 723 143 / 143 CONT .[id number] [facility] Rx#:[id number] Oral 400 / 400 Output: Urine Amount (Catheter) 1025 / 1025 Indwelling Urethral Catheter 1025 / 1025 Other: # Voids 2 Date of Last Bowel Movement 02/24/18 02/24/18 02/24/18 # Bowel Movements 0 Result Diagrams: 02/27/18 04:01 02/26/18 03:24 Laboratory Results: Laboratory Results - last 24 hr 02/27/18 04:01 WBC 19.7 H RBC 4.51 Hgb 14.2 Hct 42.8 MCV 94.8 MCH 31.4 MCHC 33.1 RDW 14.6 Plt Count 218 MPV 9.9 Culture Results: Microbiology 02/26/18 12:40 Acid Fast Bacilli Smear - Final Tissue - Head No acid fast bacilli seen 02/26/18 12:40 Gram Stain - Final Tissue - Head Wound Culture - Preliminary No growth in 24 hours 02/26/18 12:40 Fungal Smear - Final Tissue - Head No fungal elements seen Medications: Active Medications Generic Name Dose Route Start Last Admin Trade Name Freq PRN Reason Stop Dose Admin Dexamethasone Sodium Phosphate 4 mg 02/22/18 06:00 02/27/18 21:19 Decadron Inj IV.PUSH 4 mg Q8HR [facility] Administration Enalaprilat 1.25 mg 02/25/18 12:12 02/27/18 03:59 Vasotec Inj IV.PUSH 1.25 mg Q6H PRN Administration SBP>180 or DBP>100 Sodium Chloride 1,000 mls @ 75 mls/hr 02/22/18 03:15 02/27/18 18:07 Ns Inj IV.CONT Not Given .[id number] [facility] Levetiracetam 500 mg 02/24/18 10:00 02/27/18 21:19 Keppra Liq NG/OG 500 mg BID [facility] Administration Lisinopril 10 mg 02/27/18 09:00 02/27/18 09:22 Prinivil PO 10 mg DAILY [facility] Administration Senna/Docusate Sodium 1 tab 02/22/18 09:00 02/27/18 21:19 Mallory-Colace PO 1 tab BID [facility] Administration Sodium Chloride 2 ml 02/22/18 09:00 02/27/18 21:19 Ns Flush IV.FLUSH 2 ml BID [facility] Administration Objective Remarks: GENERAL: Well-nourished, well-developed patient. SKIN: Warm and dry. HEAD: Normocephalic. EYES: No scleral icterus. No injection or drainage. LYMPHATIC: No adenopathy. RESPIRATORY: No accessory muscle use. EXTREMITIES: No cyanosis, or edema. MUSCULOSKELETAL: Adequate muscle tone. NEUROLOGICAL: No obvious focal deficit. Awake, alert, and oriented x3. Assessment/Plan - Plan 1. Right frontal brain lesion with preliminary pathology results showing metastatic adenocarcinoma. CT CAP showing 2 cm right hilar adenopathy. Kwadwo will need PET CT upon hospital discharge. She will need close follow up in oncology clinic. She has been seen by radiation oncology team and will plan for outpatient radiation therapy.
--- NOTE | 2018-02-28 08:10 | P.PNIM ---
Subjective Interval history: f/u; brain mass in no acute distress. looks comfortable. denies pain or headache. no fever. Physical Exam Vital signs: Vital Signs 02/27/18 12:00 02/27/18 16:00 02/27/18 20:00 Temperature 98.4 F 98.6 F 98.4 F Pulse Rate 65 69 79 Respiratory Rate 17 14 15 Blood Pressure 159/77 H 158/70 H 162/78 H Pulse Oximetry 95 02/28/18 00:00 02/28/18 04:00 Temperature 98.1 F 97.9 F Pulse Rate 57 L 53 L Respiratory Rate 19 15 Blood Pressure 160/70 H 157/83 H Pulse Oximetry 95 95 Intake & Output 02/27/18 02/28/18 02/28/18 18:59 06:59 18:59 Intake Total 543 / 543 1800 / 1800 Output Total 1050 / 1050 Balance 543 / 543 750 / 750 Weight 57.1 kg Intake: IV 143 / 143 NS Inj 1,000 ML @ 75 mls/hr IV. 143 / 143 CONT .[id number] [facility] Rx#:[id number] Oral 400 / 400 500 / 500 Anesthesia Amount 1300 / 1300 Output: Estimated Blood Loss 25 / 25 Urine Amount (Catheter) 1025 / 1025 Indwelling Urethral Catheter 1025 / 1025 Other: # Voids 2 4 Date of Last Bowel Movement 02/24/18 02/24/18 # Bowel Movements 0 0 - Constitutional no acute distress - Routine HEENT Exam Comments: s/p tumor resection- heide in place- - Routine Respiratory Exam Present: CTA bilaterally - Routine Cardiovascular Exam Present: RRR - Routine Abdominal Exam Present: soft - Routine Extremities Exam Comments: no pedal edema - Routine Neurological Exam Present: alert, oriented X3 - Urinary Catheter Management Indwelling Urethral Catheter Cath placed during this visit: yes, but has since been removed by the nurse Reason for continuing: Decision to DC catheter Insertion date: 02/26/18 Insertion time: 12:18 Removal date: 02/27/18 Removal time: 11:59 Results - Labs CBC & Chem 7: 02/27/18 04:01 02/26/18 03:24 Microbiology 02/26/18 12:40 Tissue - Head Gram Stain - Final 02/26/18 12:40 Tissue - Head Wound Culture - Preliminary No growth in 48 hours 08/16/18 12:40 Tissue - Head Acid Fast Bacilli Smear - Final No acid fast bacilli seen Assessment and Plan - Plan 62-year-old female with history of hypertension, hyperlipidemia, [facility] for evaluation of a brain mass. She presented to [facility] with 3 episodes of left-sided tongue/facial numbness, slurred speech, concerned for having a stroke, found to have a frontal lobe mass on CT, sent to [place] for neurosurgery evaluation. Brain mass: Acute. + Facial numbness/slurred speech symptoms resolved. -Head CT reviewed, shows 1.8 cm hyperdense abnormality in the right frontal lobe -Brain MRI reviewed, shows enhancing mass right parietal lobe concerning for neoplasm and possible metastatic disease -s/p right craniotomy and resection of right inferior frontal tumor by Dr. 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 -continue on Decadron and Keppra -CT of chest/abdomen/pelvis showing isolated 2 cm lymph node in the left hilar region and benign 8.5 mm cyst in the right hepatic lobe. Oncologist was reconsulted. Patient will need a PET scan. radiation oncology consulted; plan for radiation 4-6 weeks- post-tumor resection. Hypertension/Hyperlipidemia: chronic. -continue with lisinopril- will increase the dose to 20 mg daily-continue to monitor and adjust the regimen as needed. leukocytosis- likely due to steroids- no fever- will monitor. DVT prophylaxis: Teds/SCDs; avoid chemical prophylaxis due to surgery. for transfer to floor. Discharge Planning: when cleared by neurosurgery.
[2018-02-28] MEDS: Lisinopril 10 MG Tablet PO SCH (09:39)
[2018-02-28] MEDS: Sod Chloride 0.9% Inj 1,000 ML IV.CONT SCH (09:40)
[2018-02-28] MEDS: Senna/Docusate Sodium 8.6/50 MG Tablet PO SCH ×2 (09:40→21:05)
--- NOTE | 2018-02-28 15:56 | P.PNNS ---
Subjective Interval history: patient without any issues Physical Exam Vital signs: Vital Signs 02/27/18 16:00 02/27/18 20:00 02/28/18 00:00 Temperature 98.6 F 98.4 F 98.1 F Pulse Rate 69 79 57 L Respiratory Rate 14 15 19 Blood Pressure 158/70 H 162/78 H 160/70 H Pulse Oximetry 95 02/28/18 04:00 02/28/18 08:00 02/28/18 12:00 Temperature 97.9 F 98.4 F 98.3 F Pulse Rate 53 L 68 68 Respiratory Rate 15 23 15 Blood Pressure 157/83 H 173/76 H 143/69 H Pulse Oximetry 95 96 95 Intake & Output 02/27/18 02/28/18 02/28/18 18:59 06:59 18:59 Intake Total 543 / 543 1800 / 1800 Output Total 1050 / 1050 Balance 543 / 543 750 / 750 Weight 57.1 kg Intake: IV 143 / 143 NS Inj 1,000 ML @ 75 mls/hr IV. 143 / 143 CONT .[id number] LIANNA Rx#:[id number] Oral 400 / 400 500 / 500 Anesthesia Amount 1300 / 1300 Output: Estimated Blood Loss 25 / 25 Urine Amount (Catheter) 1025 / 1025 Indwelling Urethral Catheter 1025 / 1025 Other: # Voids 2 4 Date of Last Bowel Movement 02/24/18 02/24/18 02/24/18 # Bowel Movements 0 0 Narrative: E4 bright A&O x 3 CN II-XII intact Motor 5/5 UE/LE incision CDI - Urinary Catheter Management Indwelling Urethral Catheter Cath placed during this visit: yes, but has since been removed by the nurse Reason for continuing: Decision to DC catheter Insertion date: 02/26/18 Insertion time: 12:18 Removal date: 02/27/18 Removal time: 11:59 Assessment and Plan - Assessment (1) Brain metastasis Code(s): C79.31 - Secondary malignant neoplasm of brain Status: Acute - Plan Ms. Keller is a 62 y/o female POD 2 from right craniotomy for resection of mass -CT CAP negative except for hilar lymph node -final path pending -keppra 500 mg po BID for 2 weeks post op -recommend 1 week taper of decadron -ok to normalize: floor status, activity as tolerated PT/OT -further metastatic workup per primary service
[2018-03-01] MEDS: Sod Chloride 0.9% Inj 1,000 ML IV.CONT SCH ×2 (04:33→09:38)
--- NOTE | 2018-03-01 07:58 | P.PNIM ---
Subjective Interval history: f/u; brain tumor in no acute distress. denies pain or headache. no new complaints. Physical Exam Vital signs: Vital Signs 02/28/18 08:00 02/28/18 12:00 02/28/18 16:00 Temperature 98.4 F 98.3 F 98.3 F Pulse Rate 68 68 75 Respiratory Rate 23 15 24 Blood Pressure 173/76 H 143/69 H 134/75 Pulse Oximetry 96 95 95 02/28/18 20:00 03/01/18 00:00 03/01/18 04:00 Temperature 98.6 F 98.3 F 97.2 F L Pulse Rate 67 72 63 Respiratory Rate 19 18 18 Blood Pressure 173/84 H 162/76 H 155/79 H Pulse Oximetry 96 95 97 Intake & Output 02/28/18 03/01/18 03/01/18 18:59 06:59 18:59 Intake Total 400 / 400 240 / 240 Balance 400 / 400 240 / 240 Weight 56.6 kg Intake: Oral 400 / 400 240 / 240 Other: # Voids 5 2 Date of Last Bowel Movement 02/28/18 02/27/18 # Bowel Movements 2 - Constitutional no acute distress - Routine HEENT Exam Comments: staple in place - on the head. - Routine Respiratory Exam Present: CTA bilaterally - Routine Cardiovascular Exam Present: RRR - Routine Abdominal Exam Present: soft - Routine Extremities Exam Comments: no pedal edema. - Routine Neurological Exam Present: alert, oriented X3 - Urinary Catheter Management Indwelling Urethral Catheter Cath placed during this visit: yes, but has since been removed by the nurse Reason for continuing: Decision to DC catheter Insertion date: 02/26/18 Insertion time: 12:18 Removal date: 02/27/18 Removal time: 11:59 Results - Labs CBC & Chem 7: 02/27/18 04:01 02/26/18 03:24 Microbiology 02/26/18 12:40 Tissue - Head Gram Stain - Final 02/26/18 12:40 Tissue - Head Wound Culture - Preliminary No growth in 48 hours Assessment and Plan - Plan 62-year-old female with history of hypertension, hyperlipidemia, presents from [facility] for evaluation of a brain mass. She presented to [facility] with 3 episodes of left-sided tongue/facial numbness, slurred speech, concerned for having a stroke, found to have a frontal lobe mass on CT, sent to [facility] for neurosurgery evaluation. Brain mass: Acute. + Facial numbness/slurred speech symptoms resolved. -Head CT reviewed, shows 1.8 cm hyperdense abnormality in the right frontal lobe -Brain MRI reviewed, shows enhancing mass right parietal lobe concerning for neoplasm and possible metastatic disease -s/p right craniotomy and resection of right inferior frontal tumor by Dr. 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 -continue on Decadron and Keppra -CT of chest/abdomen/pelvis showing isolated 2 cm lymph node in the left hilar region and benign 8.5 mm cyst in the right hepatic lobe. Oncologist was reconsulted. Patient will need a PET scan. radiation oncology consulted; plan for radiation 4-6 weeks- post-tumor resection. Hypertension/Hyperlipidemia: chronic. -continue with lisinopril- increased the dose to 20 mg daily-continue to monitor and adjust the regimen as needed. leukocytosis- likely due to steroids- no fever- will monitor.CBC today pending. DVT prophylaxis: Teds/SCDs; avoid chemical prophylaxis due to surgery. Discharge Planning: when cleared by neurosurgery.
[2018-03-01 08:19] LABS: Baso % (Auto) 0.1 % (0.0-2.0); Hematocrit 45.5 % (35.0-46.0); Hemoglobin 14.9 gm/dL (11.6-15.3); Lymph % (Auto) 11.2 % (9.0-44.0); Mean Corpuscular HGB Conc 32.7 % (32.0-36.0); Mean Corpuscular Hemoglobin 31.7 pg (27.0-34.0); Mean Corpuscular Volume 96.8 fL (80.0-100.0); Mean Platelet Volume 10.7 fL (7.0-11.0); Mono % (Auto) 5.6 % (0.0-8.0); Neut # (Auto) 14.9 th/mm3 (1.8-7.7); Neut % (Auto) 83.1 % (16.0-70.0); Platelet Count 238 th/mm3 (150-450); Red Cell Distribution Width 14.3 % (11.6-17.2)
[2018-03-01] MEDS: Lisinopril 10 MG Tablet PO SCH (08:40)
[2018-03-01] MEDS: Senna/Docusate Sodium 8.6/50 MG Tablet PO SCH (08:40)
[2018-03-01 09:20] VITALS: BP 173/81; PULSE 59; RESP 17; TEMP 97.4; O2SAT 95
--- NOTE | 2018-03-01 10:06 | P.PNNS ---
Subjective Interval history: Patient without any issues. pain controlled. OOB without difficulties. Physical Exam Vital signs: Vital Signs 02/28/18 12:00 02/28/18 16:00 02/28/18 20:00 Temperature 98.3 F 98.3 F 98.6 F Pulse Rate 68 75 67 Respiratory Rate 15 24 19 Blood Pressure 143/69 H 134/75 173/84 H Pulse Oximetry 95 95 96 03/01/18 00:00 03/01/18 04:00 03/01/18 08:00 Temperature 98.3 F 97.2 F L 97.4 F L Pulse Rate 72 63 59 L Respiratory Rate 18 18 17 Blood Pressure 162/76 H 155/79 H 173/81 H Pulse Oximetry 95 97 95 Intake & Output 02/28/18 03/01/18 03/01/18 18:59 06:59 18:59 Intake Total 400 / 400 240 / 240 Balance 400 / 400 240 / 240 Weight 56.6 kg Intake: Oral 400 / 400 240 / 240 Other: # Voids 5 2 1 Date of Last Bowel Movement 02/28/18 02/27/18 02/27/18 # Bowel Movements 2 1 Narrative: E4 bright A&O x 3 CN II-XII intact Motor 5/5 UE/LE no drift incision CDI - Urinary Catheter Management Indwelling Urethral Catheter Cath placed during this visit: yes, but has since been removed by the nurse Reason for continuing: Decision to DC catheter Insertion date: 02/26/18 Insertion time: 12:18 Removal date: 02/27/18 Removal time: 11:59 Assessment and Plan - Assessment (1) Brain metastasis Code(s): C79.31 - Secondary malignant neoplasm of brain Status: Acute - Plan Ms. Keller is a 62 y/o female POD 3 from right craniotomy for resection of mass -CT CAP negative except for hilar lymph node -final path pending -keppra 500 mg po BID for 2 weeks post op -recommend 1 week taper of decadron -ok for discharge on a neurosurgical basis -discharge instructions: ok to shower, no soaking or submerging incision till healed, follow up with neurosurgery in 2 weeks for stable removal -further metastatic workup per primary service: will require outpatient oncology /rad onc
--- NOTE | 2018-03-01 11:27 | P.DS ---
Date of admission: 02/22/18 02:01 Primary care physician: UNKNOWN Brief History from admission: 62-year-old female is a transfer from [facility] for an evaluation of a brain mass. The patient reports that approximately 2 weeks ago she complained of numbness. She also states that she has had 3 episodes of left-sided tongue and facial numbness with slurred speech. She was concerned that she had a stroke. She went to [facility] for further evaluation where a CT of the head showed a frontal lobe mass. [place] [facility] [place] as there was no neurology/neurosurgery on-call at [facility]. The patient states that she feels fine. Denies any headaches or blurry vision. No pain. DS: Medications - Discharge Medications Prescriptions: dexamethasone [Decadron] 0.5 mg PO DIRECTED 8 Days #8 tab levetiracetam [Keppra] 500 mg PO Q12H 10 Days #20 tab lisinopril 20 mg PO DAILY 30 Days #60 tab pantoprazole [Protonix] 20 mg PO DAILY 8 Days #8 tab DS: Summary Hospital Course: patient was admitted with Brain mass.Head CT showed 1.8 cm hyperdense abnormality in the right frontal lobe. Brain MRI showed enhancing mass right parietal lobe concerning for neoplasm and possible metastatic disease. 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 CT of chest/abdomen/pelvis showed isolated 2 cm lymph node in the left hilar region and benign 8.5 mm cyst in the right hepatic lobe. she was evaluated by oncology and radiation oncology- she needs PET scan as outpatient with close f/u with PCP and the above-noted consultants. she was started on lisinopril and her BP to be followed as outpatient. she will be discharged with Decadron and Keppra. heide to be removed in two weeks. - Time Spent with Patient Total time spent providing and/or coordinating discharge services: Less than 30 minutes - Quality: VTE Deep Vein Thrombosis/Pulmonary Embolism Present on Admission: No Exam Vital signs: Vital Signs 02/28/18 12:00 02/28/18 16:00 02/28/18 20:00 Temperature 98.3 F 98.3 F 98.6 F Pulse Rate 68 75 67 Respiratory Rate 15 24 19 Blood Pressure 143/69 H 134/75 173/84 H Pulse Oximetry 95 95 96 03/01/18 00:00 03/01/18 04:00 03/01/18 08:00 Temperature 98.3 F 97.2 F L 97.4 F L Pulse Rate 72 63 59 L Respiratory Rate 18 18 17 Blood Pressure 162/76 H 155/79 H 173/81 H Pulse Oximetry 95 97 95 Intake & Output 02/28/18 03/01/18 03/01/18 18:59 06:59 18:59 Intake Total 400 / 400 240 / 240 Balance 400 / 400 240 / 240 Weight 56.6 kg Intake: Oral 400 / 400 240 / 240 Other: # Voids 5 2 1 Date of Last Bowel Movement 02/28/18 02/27/18 02/27/18 # Bowel Movements 2 1 - Constitutional no acute distress - Routine Respiratory Exam Present: CTA bilaterally - Routine Cardiovascular Exam Present: RRR - Routine Abdominal Exam Present: soft - Routine Extremities Exam Comments: no pedal edema. - Routine Neurological Exam Present: alert, oriented X3 Results Procedures completed during hospitalization: brain tumor resection. Labs on day of discharge: Labs from last 24 hours 03/01/18 06:13 WBC 18.0 H RBC 4.70 Hgb 14.9 Hct 45.5 MCV 96.8 MCH 31.7 MCHC 32.7 RDW 14.3 Plt Count 238 MPV 10.7 Neut % (Auto) 83.1 H Lymph % (Auto) 11.2 Grady % (Auto) 5.6 Eos % (Auto) 0.0 Baso % (Auto) 0.1 Neut # (Auto) 14.9 H Lymph # (Auto) 2.0 Grady # (Auto) 1.0 H Eos # (Auto) 0.0 Baso # (Auto) 0.0 WBC Differential . Differential Comment Auto diff final - Impressions ITS Impressions Head MRI 02/22/18 00:00 CONCLUSION: 1. Enhancing mass right parietal lobe concerning for neoplasm and possible metastatic disease. 2. The remainder of the brain is otherwise unremarkable. Head CT 02/22/18 00:01 CONCLUSION: 1. There is a 1.8 cm hyperdense abnormality in the right frontal lobe. Following contrast administration there is the suggestion of enhancement suggesting that it represents a solid mass and not hemorrhage. Based on the location this could be intra-axial or extra-axial but the appearance favors an intra-axial lesion. Therefore, meningioma is unlikely. It is not causing any significant local mass effect or edema in the adjacent brain. This should undergo further characterization with brain MRI with and without intravenous contrast for additional characterization. This could be performed tomorrow morning since it is not causing any mass effect or edema. 2. No other abnormality is identified. Abdomen/Pelvis CT 02/23/18 00:00 CONCLUSION: 1. Benign-appearing 8.5 mm cyst in the medial aspect of the right hepatic lobe. 2. Otherwise, no findings of a mass lesion or metastatic disease. 3. 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 Chest CT 02/23/18 00:00 CONCLUSION: 1. Early biapical emphysematous changes. 2. Isolated 2 cm lymph node in the left hilar region. Etiology is uncertain. Outpatient patent PET imaging could be performed to evaluate metabolic activity in this region if clinically warranted. 3. Mild atherosclerotic calcification of the coronary arteries Discharge Plan - Discharge Disposition Patient Disposition: 01 Discharge Home - Discharge Condition Condition: Stable - Discharge Order Discharge Orders: Discharge Order (Routine); Ordered 03/01/18 Ordered By: Dagoberto Sifuentes - Physicians Team Primary Care Provider: UNKNOWN, Attending Provider: Dagoberto Sifuentes Other Providers: Abad Li MD ; Sera Mcgraw ; Amado Hawkins MD ; Alvaro Lema MD
== END 2018-03-01 12:39 | disposition home or self-care (01) ==
LOC: NEPC 21:42 → NEDA 02-22 02:01 → NEPFCDU 02-22 05:01 → N03 02-24 15:22 → N06 02-24 18:52 → N03 02-26 11:03 → N06 02-28 23:42
PROVIDERS: ADMIT Internal Medicine; ATTEND Internal Medicine